=== PATIENT | male | born 1955 | race Caucasian/White ===

== ENCOUNTER 2018-02-03 22:34 | Emergency (ER) | payer OTHER ==
[2018-02-03 23:04] VITALS: TEMP 98.5; BMI 52.0
--- NOTE | 2018-02-03 23:38 | PDOC ---
Attending Attestation - Resident Resident Name: Petey Alcantara - ED Attending Attestation I have performed the following: I have examined & evaluated the patient, The case was reviewed & discussed with the resident, I agree w/resident's findings & plan, Exceptions are as noted <Pee Floyd - Last Filed: 02/03/18 23:37> - HPI HPI: 02/03/18 23:50 The patient is a 62 year old male, with a significant past medical history of morbid obesity, who presents to the emergency department for evaluation s/p fall. The patient reports he was lying [place] in bed at a motel when he fell asleep and woke up on the ground. The patient states he woke up with mild posterior headache and dizziness so he called 911 to be transported to the ED for evaluation. He denies any recent fevers, chills. He denies any recent nausea, vomit, diarrhea or constipation. He denies any recent chest pain or shortness of breath. Allergies: NKA Documentation prepared by Max Leon, acting as medical services manager for Pee Floyd MD. <Max Leon - Last Filed: 02/03/18 23:53>
[2018-02-04 00:16] LABS: BASO % 0.6 % (0-2.0); EOS % 3.7 % (0-4.5); HEMATOCRIT 44.1 % (35.4-49); LYMPH % 11.9 % (8-40); MCH 30.7 pg (25.7-33.7); MCHC 33.9 g/dl (32.0-35.9); MEAN CELL VOLUME 90.6 fl (80-96); MEAN PLT VOLUME 10.8 fl (7.5-11.1); MONO % 11.3 % (3.8-10.2); NEUT % 72.5 % (42.8-82.8); PLATELET COUNT 116 K/MM3 (134-434); RBC 4.87 M/mm3 (4.00-5.60); RDW 15.2 % (11.9-15.9); WHITE BLOOD COUNT 6.2 K/mm3 (4.0-10.0)
[2018-02-04 00:44] LABS: ALBUMIN 3.1 g/dl (3.4-5.0); ANION GAP 11 (8-16); BILIRUBIN,TOTAL 1.4 mg/dL (0.2-1.0); BLOOD UREA NITROGEN 7 mg/dL (7-18); CALCIUM 7.2 mg/dL (8.5-10.1); CHLORIDE 105 mmol/L (98-107); CO2 26 mmol/L (21-32); CREATININE 0.6 mg/dL (0.7-1.3); GLUCOSE,RANDOM 98 mg/dL (74-106); POTASSIUM 3.5 mmol/L (3.5-5.1); SGOT/AST 35 U/L (15-37); SGPT/ALT 26 U/L (12-78); SODIUM 142 mmol/L (136-145); TOT PROT 5.9 g/dl (6.4-8.2)
[2018-02-04 00:45] LABS: ALK PHOS 89 U/L (45-117)
--- NOTE | 2018-02-04 02:51 | PDOC ---
History of Present Illness - General Chief Complaint: Injury Stated Complaint: FALL Time Seen by Provider: 02/03/18 23:03 History Source: Patient Exam Limitations: No Limitations - History of Present Illness Initial Comments: 02/04/18 02:51 The patient is a 62 year old male, with a significant past medical history of morbid obesity, who presents to the emergency department for evaluation s/p fall. The patient reports he was lying [place] in bed at a motel when he fell asleep and woke up on the ground. The patient states he woke up with mild posterior headache and dizziness so he called 911 to be transported to the ED for evaluation. He denies any recent fevers, chills. He denies any recent nausea, vomit, diarrhea or constipation. He denies any recent chest pain or shortness of breath. Past History - Past Medical History Allergies/Adverse Reactions: Allergies Allergy/AdvReac Type Severity Reaction Status Date / Time No Known Allergies Allergy Verified 02/03/18 23:00 Home Medications: Ambulatory Orders Montelukast Na [Singulair] 1 each PO DAILY 07/04/12 metFORMIN HCL [Glucophage] 500 mg PO BID 07/04/12 Metoprolol Tartrate [Lopressor] mg PO DAILY 02/03/18 Anemia: No Cancer: No Cardiac Disorders: No CVA: No COPD: Yes (SOB, LUNG SURGERY) CHF: No Dementia: No Diabetes: (ON METFORMIN DUE FATTY LIVER) GI Disorders: Yes (REFLUX) Disorders: Yes HTN: No Hypercholesterolemia: No Liver Disease: Yes (H/O FATTY LIVER,CIRRHOSIS) Seizures: No Thyroid Disease: No - Surgical History Abdominal Surgery: Yes (HIATAL HERNIA) Lung Surgery: Yes Orthopedic Surgery: No - Suicide/Smoking/Psychosocial Hx Smoking History: Former smoker Have you smoked in the past 12 months: No Information on smoking cessation initiated: No Hx Alcohol Use: Yes (H/O ALCOHOL ABUSE, 20 YEARS AGO , OCCASIONAL DRINKS A BEER ) Drug/Substance Use Hx: No Substance Use Type: Alcohol Hx Substance Use Treatment: No Review of Systems - Review of Systems Able to Perform ROS?: Yes Is the patient limited Scottish proficient: No Constitutional: No: Symptoms Reported HEENTM: No: Symptoms Reported Respiratory: No: Symptoms reported Cardiac (ROS): No: Symptoms Reported ABD/GI: No: Symptoms Reported : No: Symptoms Reported Musculoskeletal: No: Symptoms Reported All Other Systems: Reviewed and Negative *Physical Exam - Vital Signs Last Vital Signs Temp Pulse Resp BP Pulse Ox 98.5 F 92 H 24 143/94 96 02/03/18 23:00 02/03/18 23:00 02/03/18 23:00 02/03/18 23:00 02/03/18 23:00 - Physical Exam General Appearance: Yes: Nourished, Appropriately Dressed. No: Apparent Distress HEENT: positive: EOMI, CASSIE, Normal ENT Inspection Respiratory/Chest: positive: Lungs Clear, Normal Breath Sounds. negative: Chest Tender, Respiratory Distress Cardiovascular: positive: Regular Rhythm, Regular Rate, S1, S2 Gastrointestinal/Abdominal: positive: Normal Bowel Sounds, Flat, Protuberent. negative: Tender Extremity: positive: Normal Capillary Refill, Normal Range of Motion Integumentary: positive: Normal Color, Dry, Warm, Ecchymosis (over right leg) Neurologic: positive: Fully Oriented, Alert, Normal Mood/Affect, Normal Response ED Treatment Course - LABORATORY CBC & Chemistry Diagram: 02/03/18 23:50 02/03/18 23:50 - ADDITIONAL ORDERS Additional order review: Laboratory Results 02/03/18 23:50 Sodium 142 Potassium 3.5 Chloride 105 Carbon Dioxide 26 Anion Gap 11 BUN 7 Creatinine 0.6 L Creat Clearance w eGFR > 60 Random Glucose 98 Calcium 7.2 L Total Bilirubin 1.4 H AST 35 ALT 26 Alkaline Phosphatase 89 Total Protein 5.9 L Albumin 3.1 L 02/03/18 23:50 RBC 4.87 MCV 90.6 MCHC 33.9 RDW 15.2 MPV 10.8 Neutrophils % 72.5 Lymphocytes % 11.9 Monocytes % 11.3 H Eosinophils % 3.7 Basophils % 0.6 - RADIOLOGY Radiology Studies Ordered: Category Date Time Status HEAD CT WITHOUT CONTRAST [CT] Stat CT Scan 02/04/18 00:01 Taken Medical Decision Making - Medical Decision Making 02/04/18 03:42 CT scan head is normal. Patient is asking for placement in detention. Will find placement for patient in the AM with Chemical Waste Management Technician 02/04/18 07:02 Patient signed out to Dr. Babcock. *DC/Admit/Observation/Transfer Diagnosis at time of Disposition: Closed head injury - Discharge Dispostion Disposition: HOME Admit: No - Referrals Referrals: Jamal Natarajan MD [Primary Care Provider] - - Patient Instructions Printed Discharge Instructions: DI for Closed Head Injury Additional Instructions: Come back to the ER for any new concerning or worsening symptom. - Post Discharge Activity
[2018-02-04] MEDS ORDERED: ACETAMINOPHEN 500 MG TABLET (FP) PO ONE (07:42)
--- NOTE | 2018-02-04 07:43 | PDOC ---
*Physical Exam - Vital Signs Last Vital Signs Temp Pulse Resp BP Pulse Ox 98.5 F 87 24 139/85 95 02/03/18 23:00 02/04/18 07:30 02/03/18 23:00 02/04/18 07:30 02/04/18 07:30 - Physical Exam Comments: 02/04/18 07:42 GENERAL: Awake, alert, and fully oriented, in no acute distress HEAD: No signs of trauma, normocephalic, atraumatic EYES: PERRLA, EOMI, sclera anicteric, conjunctiva clear ENT: Hearing grossly normal, nares patent, oropharynx clear without exudates. Moist mucosa NECK: Absent C spine deformity or ttp. Normal ROM, supple, no lymphadenopathy, JVD, or masses LUNGS: No distress, speaks full sentences, clear to auscultation bilaterally HEART: Regular rate and rhythm, normal S1 and S2, no murmurs, rubs or gallops, peripheral pulses normal and equal bilaterally. EXTREMITIES : Normal inspection, Normal range of motion, no edema. No clubbing or cyanosis. NEUROLOGICAL: Cranial nerves II through XII grossly intact. Normal speech, normal gait, no focal sensorimotor deficits SKIN: Warm, Dry, normal turgor, no rashes or lesions noted ED Treatment Course - LABORATORY CBC & Chemistry Diagram: 02/03/18 23:50 02/03/18 23:50 - ADDITIONAL ORDERS Additional order review: Laboratory Results 02/03/18 23:50 Sodium 142 Potassium 3.5 Chloride 105 Carbon Dioxide 26 Anion Gap 11 BUN 7 Creatinine 0.6 L Creat Clearance w eGFR > 60 Random Glucose 98 Calcium 7.2 L Total Bilirubin 1.4 H AST 35 ALT 26 Alkaline Phosphatase 89 Total Protein 5.9 L Albumin 3.1 L 02/03/18 23:50 RBC 4.87 MCV 90.6 MCHC 33.9 RDW 15.2 MPV 10.8 Neutrophils % 72.5 Lymphocytes % 11.9 Monocytes % 11.3 H Eosinophils % 3.7 Basophils % 0.6 Medical Decision Making - Medical Decision Making 02/04/18 07:[address] Alcantara. 62 yo M with h/o morbid obesity who BIBA for closed head injury s/p mechanical fall. TPt. reports that he was sleeping 1 hour [employer] at hotel and woke up after falling on floor and hitting his head. Now complains of mild posterior headache and dizziness, with no asx. N/V, F/C, neck pain/stiffness, back pain, vision change, or head lac. Denies CP, SOB, abdominal pain, urinary complaints. Denies alcohol intoxication. HDS, and physical exam unremarkable, with absent neuro deficits. Low suspicion of SAH, hematoma, or C-spine injury d/t absent neuro deficits. Pt. low risk c-spine injury per NEXUS criteria. Upon further eval patient endorses homelesness, following eviction from hotel today. Headache improved following Tylenol, and CT report with no acute change, hemorrhage, but with old small vessel infartc vs. [place] space in left temporal artery. He is requesting shelter placement. Awaiting case/hospital social worker arrival to ED to arrange for placement. ED Course: 02/04/18 09:25 Case management Aj Tapia does not believe pt. is candidate for nursing facility placement. Does not require assistance with basic ADL' or other activities of living. Will place PT consult to eval pt. 02/04/18 14:37 Pt. not candidate for nursing facility. Stable for d/c with return precautions. *DC/Admit/Observation/Transfer Diagnosis at time of Disposition: Closed head injury - Discharge Dispostion Disposition: HOME Condition at time of disposition: Good - Referrals Referrals: Jamal Natarajan MD [Primary Care Provider] - - Patient Instructions Printed Discharge Instructions: DI for Closed Head Injury Additional Instructions: Please return to the emergency department with any new or worsening symptoms or concerns. Please follow up with your primary care physician within 72 hours. - Post Discharge Activity - Attestations Physician Attestion: 02/04/18 07:43 I attest to the information provided in this note.
[2018-02-04] MEDS ORDERED: ACETAMINOPHEN 325 MG TABLET (FP) ONE (08:23)
[2018-02-04 13:41] VITALS: BP 142/78; PULSE 90
== END 2018-02-04 13:50 | disposition home or self-care (01) ==
LOC: JER 22:34
DX: S09.8XXA Other specified injuries of head, initial encounter (principal); W01.198A Fall on same level from slipping, tripping and stumbling with subsequent striking against other object, initial encounter; Y93.84 Activity, sleeping; Y92.59 Other trade areas as the place of occurrence of the external cause; Y99.8 Other external cause status; E11.9 Type 2 diabetes mellitus without complications; Z79.84 Long term (current) use of oral hypoglycemic drugs; J44.9 Chronic obstructive pulmonary disease, unspecified; Z59.0 Homelessness
CPT/HCPCS: 36415; 70450-TC; 80053; 85025; 99282-25

== ENCOUNTER 2018-02-18 13:54 | Inpatient (IN) | payer OTHER ==
--- NOTE | 2018-02-18 14:12 | PDOC ---
History of Present Illness - General Stated Complaint: Shortness of Breath History Source: Patient, EMS Exam Limitations: No Limitations - History of Present Illness Initial Comments: This is a 62 YOM with h/o A-fib (on Xarelto), NIDDM (on metformin), HTN, prior cigarette smoking, and current homelessness (staying in shelters and hotels) who p/w worsening SOB for the past 6 months acutely exacerbated this morning. He describes an episode this morning where he was drying to stand up from the toilet and was unable to pull himself up because of the positioning of the commode handlebar. When he finally was able to pull himself up to standing, he became very short of breath and describes gasping for breath. The SOB has persisted to some extent since that time (at about 11 am). He additionally notes that while in the ambulance en route to the ED he had mild substernal chest pain which was non-radiating and which had mostly resolved by the time he arrived to the ED. He additionally notes chronic right leg swelling and redness which is currently no different than his normal baseline. He had an ultrasound of this leg at [facility] within the past few weeks and he reports it was normal. He additionally notes inability to breath while laying down flat. He has not had any recent significant cough, fever, palpitations, nausea, vomiting , diarrhea, constipation, etc. Past History - Past Medical History Allergies/Adverse Reactions: Allergies Allergy/AdvReac Type Severity Reaction Status Date / Time No Known Allergies Allergy Verified 02/18/18 14:13 Home Medications: Ambulatory Orders Montelukast Na [Singulair] 1 each PO DAILY 07/04/12 metFORMIN HCL [Glucophage] 500 mg PO BID 07/04/12 Metoprolol Tartrate [Lopressor] 10 mg PO DAILY 02/03/18 Rivaroxaban [Xarelto -] 20 mg PO DAILY 02/18/18 Anemia: No Cancer: No Cardiac Disorders: No CVA: No COPD: Yes (SOB, LUNG SURGERY) CHF: No Dementia: No Diabetes: (ON METFORMIN DUE FATTY LIVER) GI Disorders: Yes (REFLUX) Disorders: Yes HTN: No Hypercholesterolemia: No Liver Disease: Yes (H/O FATTY LIVER,CIRRHOSIS) Seizures: No Thyroid Disease: No - Surgical History Abdominal Surgery: Yes (HIATAL HERNIA) Lung Surgery: Yes Orthopedic Surgery: No - Suicide/Smoking/Psychosocial Hx Smoking History: Former smoker Have you smoked in the past 12 months: No Hx Alcohol Use: Yes (H/O ALCOHOL ABUSE, 20 YEARS AGO , OCCASIONAL DRINKS A BEER ) Drug/Substance Use Hx: No Substance Use Type: Alcohol Hx Substance Use Treatment: No Review of Systems - Review of Systems Able to Perform ROS?: Yes Constitutional: No: Chills, Fever, Unexplained wgt Loss HEENTM: No: Nose Congestion, Throat Pain Respiratory: Yes: Shortness of Breath. No: Cough Cardiac (ROS): Yes: Chest Pain, Edema. No: Palpitations ABD/GI: No: Constipated, Diarrhea, Nausea, Vomiting : No: Burning, Dysuria Musculoskeletal: No: Back Pain, Neck Pain Integumentary: No: Bruising, Rash Neurological: No: Headache, Numbness, Tingling, Weakness, Dizziness Endocrine: No: Unexplained Weight Gain, Unexplained Weight Loss *Physical Exam - Physical Exam General Appearance: Yes: Nourished, Obese, Other (pleasant adult male, answering questions appropriately, unkempt). No: Apparent Distress HEENT: positive: EOMI, CASSIE, Normal Voice, Hearing Grossly Normal. negative: Scleral Icterus (R), Scleral Icterus (L), Nasal Congestion Neck: positive: Trachea midline, Supple. negative: Tender, Rigid, Stridor Respiratory/Chest: positive: Decreased Breath Sounds. negative: Respiratory Distress, Crackles, Rhonchi, Stridor, Wheezing Cardiovascular: positive: Edema (RLE), Irregularly Irregular. negative: Murmur Gastrointestinal/Abdominal: positive: Normal Bowel Sounds, Soft, Protuberent, Hernia (ventral to the RUQ). negative: Tender, Organomegaly, Pulsatile Mass, Guarding Musculoskeletal: positive: Normal Inspection. negative: Decreased Range of Motion, Vertebral Tenderness Extremity: positive: Normal Capillary Refill, Normal Inspection, Normal Range of Motion, Swelling (RLE 2+ pitting edema with redness, no erythema or excessive warmth to BLE). negative: Tender, Cyanosis, Calf Tenderness Integumentary: positive: Normal Color, Dry, Warm. negative: Erythema, Diaphoresis, Rash, Bruising Neurologic: positive: background check coordinator II-XII NML intact (grossly), Fully Oriented, Alert, Normal Mood/Affect, Normal Response, Motor Strength 5/5. negative: Facial Droop , Numbness, Sensory Deficit, Confused, Disoriented Heart Score/ECG Review - History History: Moderately suspicious - Electrocardiogram EKG: Normal - Age Age: 45-65 - Risk Factors Risk Factors Heart Score: Yes Hx Hypertension, Yes Smoking History, Yes Hx Obesity Based on the list above the patient has:: >/=3 risk factors or Hx atherosclerotic disease - Troponin Troponin: </= normal limit - Score Heart Score - Total: 4 ED Treatment Course - LABORATORY CBC & Chemistry Diagram: 02/18/18 14:20 02/18/18 14:42 Medical Decision Making - Medical Decision Making Patient with h/o A-fib (on Xarelto), NIDDM, HTN, who p/w SOB, orthopnea, chest pain. Initial VS notable for: BP 118/73, satting 96% on RA, RR 22 Exam notable for: diminished breath sounds bilaterally, ventral hernia, obesity , RLE 2+ pitting edema and redness. DDX IBNLT CHF, ACS, PE, COPD, PNA/bronchitis, anemia, pericarditis, PTX, effusion (e.g. malignancy), other infection, etc. Ordered is CBCD CMP Mg Cardiac Panel BNP Coags EKG CXR ASA O2. Patient positioned with head of bed up 90 degrees. EKG notable for: A-fib without RVR, no ischemic changes. CXR notable for: cardiomegaly and congestive changes. Labs notable for: Cr is 0.7, Ca 7.7, T. Bili 1.4, BNP 333. Repeat VS: 96% on RA, BP 147/90. On reassessment: Patient states SOB remains somewhat improved with HOB up at 90 degree positioning. 40 Lasix IV ordered. Patient is homeless, HEART score is 4, he requires observation. Repeat cardiac profile ordered. 02/18/18 18:27 Spoke with Hillary Randall, patient to be admitted to Tele Obs to Dr. Guzman. Decision to Admit order placed. *DC/Admit/Observation/Transfer Diagnosis at time of Disposition: Hypocalcemia, Hyperbilirubinemia CHF exacerbation Qualifiers: Heart failure type: unspecified Qualified Code(s): I50.9 - Heart failure, unspecified Chest pain Qualifiers: Chest pain type: unspecified Qualified Code(s): R07.9 - Chest pain, unspecified - Discharge Dispostion Condition at time of disposition: Guarded Admit: Yes - Referrals Referrals: Jamal Natarajan MD [Primary Care Provider] - - Patient Instructions - Post Discharge Activity
[2018-02-18] MEDS ORDERED: ASPIRIN 325 MG TABLET PO ONE (14:28)
[2018-02-18] MEDS ORDERED: ASPIRIN 325 MG TABLET ONE (14:43)
[2018-02-18 15:01] LABS: BASO % 0.7 % (0-2.0); EOS % 2.5 % (0-4.5); HEMATOCRIT 48.7 % (35.4-49); HEMOGLOBIN 16.3 GM/dL (11.7-16.9); LYMPH % 12.3 % (8-40); MCH 30.3 pg (25.7-33.7); MCHC 33.4 g/dl (32.0-35.9); MEAN CELL VOLUME 90.7 fl (80-96); MEAN PLT VOLUME 10.2 fl (7.5-11.1); MONO % 11.5 % (3.8-10.2); PLATELET COUNT 151 K/MM3 (134-434); RBC 5.37 M/mm3 (4.00-5.60); RDW 15.5 % (11.9-15.9); WHITE BLOOD COUNT 8.1 K/mm3 (4.0-10.0)
[2018-02-18 15:14] LABS: INR 1.06 (0.82-1.09)
[2018-02-18 15:23] LABS: ALBUMIN 3.4 g/dl (3.4-5.0); ANION GAP 9 (8-16); BILIRUBIN,TOTAL 1.4 mg/dL (0.2-1.0); BLOOD UREA NITROGEN 7 mg/dL (7-18); CALCIUM 7.7 mg/dL (8.5-10.1); CHLORIDE 103 mmol/L (98-107); CO2 29 mmol/L (21-32); CREATININE 0.7 mg/dL (0.7-1.3); GLUCOSE,RANDOM 99 mg/dL (74-106); LIPASE 124 U/L (73-393); MAGNESIUM 2.2 mg/dL (1.8-2.4); POTASSIUM 4.2 mmol/L (3.5-5.1); SGOT/AST 31 U/L (15-37); SGPT/ALT 28 U/L (12-78); SODIUM 141 mmol/L (136-145); TOT PROT 6.5 g/dl (6.4-8.2)
[2018-02-18 15:26] LABS: ALK PHOS 105 U/L (45-117)
--- NOTE | 2018-02-18 15:26 | PDOC ---
Attending Attestation - Resident Resident Name: Barbara Manuel - ED Attending Attestation I have performed the following: I have examined & evaluated the patient, The case was reviewed & discussed with the resident, I agree w/resident's findings & plan, Exceptions are as noted - HPI HPI: 02/18/18 15:22 "The patient is a undomiciled 62 year old male, with a significant past medical history of morbid obesity, diabetes mellitus, COPD, atrial fibrillation (on Xarelto), who presents to the emergency department complaining of shortness of breath. The patient states that this morning around 11 am he was having trouble standing up from the toilet due to the positioning of the handlebar and once he was able to stand up felt very short of breath. The patient states the shortness of breath has persisted since the episode earlier this morning but has gradually been improving. The patient notes he has been having progressively worsening shortness of breath for the past 6 months and states he has difficulty breathing while lying down. The patient also states on the way to the ED in the ambulance he had a brief episode of midsternal chest pain which has since resolved. The patient also reports he has chronic right leg redness and swelling which was evaluated at [facility] 2-3 weeks ago with an ultrasound performed which was reportedly normal. He denies any recent fevers, chills, cough, headache or dizziness. He denies any recent nausea, vomit, diarrhea or constipation. He denies any recent dysuria , frequency, urgency or hematuria. Allergies: NKA Social History: Undomiciled. Occasional EtOH use. Nonsmoker. Denies recreational drug use. Primary Care Physician: Dr. Natarajan " - Physicial Exam PE: 02/18/18 15:23 "GENERAL: Awake, alert, and fully oriented, in no acute distress HEAD: No signs of trauma EYES: PERRLA, EOMI, sclera anicteric, conjunctiva clear ENT: Auricles normal inspection, hearing grossly normal, nares patent, oropharynx clear without exudates. Moist mucosa NECK: Nontender, no stepoffs, Normal ROM, supple, no lymphadenopathy, JVD, or masses LUNGS: Breath sounds equal, clear to auscultation bilaterally. No wheezes, and no crackles HEART: Regular rate and rhythm, normal S1 and S2, no murmurs, rubs or gallops ABDOMEN: Soft, nontender, normoactive bowel sounds. No guarding, no rebound. No masses EXTREMITIES: + RLE edema and erythema NEUROLOGICAL: Cranial nerves II through XII intact. 5/5 strength and sensation in all extremities, Normal speech, normal gait, normal cerebellar function SKIN: Warm, Dry, normal turgor, no rashes or lesions noted. " - Medical Decision Making 02/18/18 15:23 62 M with SOB, progressively worsening over several weeks. Pt with difficult lung exam 2/2 body habitus. Exam notable for RLE swelling and redness - appears chronic in nature. Possible new onset CHF. Also consider DVT/PE, though reportedly normal doppler recently. Pt is on xarelto, making DVT/PE less likely , but will repeat RLE doppler today. Also consider ACS as pt has several risk factors. - Labs, trop, BNP - RLE doppler - CXR - Admit
[2018-02-18] MEDS ORDERED: FUROSEMIDE 40 MG/4 ML INJECTABLE VIAL IVPUSH ONE (17:54)
[2018-02-18] MEDS ORDERED: FUROSEMIDE 40 MG/4 ML INJECTABLE VIAL ONE (18:00)
--- NOTE | 2018-02-18 18:44 | HP ---
CHIEF COMPLAINT: "I have been in every emergency room in [place] in the past month. I'm homeless and I want to go to a senior care." PCP: Dr. Natarajan HISTORY OF PRESENT ILLNESS: 62 year-old male with a PMH significant for HTN, atrial fibrillation on Xarelto (diagnosed 12/2017), NIDDM, and morbid obesity. Patient reports he has been increasingly SOB for the past six months. Had one episode of acute SOB this morning when trying to stand up from the toilet. He also reported to EMS that he had mild substernal chest pain which resolved by the time he got to the ED. At baseline he becomes SOB with walking more than ten feet. He has been treated for his chronic SOB in at least 6 emergency departments over the past month by the patient's own account. He has been told he is SOB due to his obesity and deconditioning. Patient also complains of chronic RLE pain. ER course was notable for: (1) Vital signs stable: T98.7, BP 188/73, p84, 96% on 2L (2) First troponin neg, two pending (3) CXR: cardiomegaly with congestive changes (4) Lasix IV 40mg x 1 (5) US RLE negative for DVT (6) ECG: afib @100bpm Recent Travel: No PAST MEDICAL HISTORY: Hypertension Atrial fibrillation NIDDM Morbid obesity PAST SURGICAL HISTORY: Left lung resection, negative pathology Social History: Smoking: quit age 24 Alcohol: no Drugs: no Family History: Allergies No Known Allergies Allergy (Verified 02/18/18 14:13) HOME MEDICATIONS: Home Medications Medication Instructions Recorded Montelukast Na [Singulair] 1 each PO DAILY 07/04/12 metFORMIN HCL [Glucophage] 500 mg PO BID 07/04/12 Metoprolol Tartrate [Lopressor] 10 mg PO DAILY 02/03/18 Rivaroxaban [Xarelto -] 20 mg PO DAILY 02/18/18 REVIEW OF SYSTEMS CONSTITUTIONAL: Absent: fever, chills, diaphoresis, generalized weakness, malaise, loss of appetite, weight change HEENT: Absent: rhinorrhea, nasal congestion, throat pain, throat swelling, difficulty swallowing, mouth swelling, ear pain, eye pain, visual changes CARDIOVASCULAR: +brief, mild chest pain Absent: chest pain, syncope, palpitations, irregular heart rate, lightheadedness , peripheral edema RESPIRATORY: +SOB, VERAS Absent: cough, orthopnea, wheezing, stridor, hemoptysis GASTROINTESTINAL: Absent: abdominal pain, abdominal distension, nausea, vomiting, diarrhea, constipation, melena, hematochezia GENITOURINARY: Absent: dysuria, frequency, urgency, hesitancy, hematuria, flank pain, genital pain MUSCULOSKELETAL: Absent: myalgia, arthralgia, joint swelling, back pain, neck pain SKIN: Absent: rash, itching, pallor HEMATOLOGIC/IMMUNOLOGIC: Absent: easy bleeding, easy bruising, lymphadenopathy, frequent infections ENDOCRINE: Absent: unexplained weight gain, unexplained weight loss, heat intolerance, cold intolerance NEUROLOGIC: Absent: headache, focal weakness or paresthesias, dizziness, unsteady gait, seizure, mental status changes, bladder or bowel incontinence PSYCHIATRIC: Absent: anxiety, depression, suicidal or homicidal ideation, hallucinations. PHYSICAL EXAMINATION Vital Signs - 24 hr 02/18/18 02/18/18 14:04 17:56 Temperature 97.8 F Pulse Rate 84 Pulse Rate [ 90 Right Radial] Respiratory 22 20 Rate Blood Pressure 118/73 Blood Pressure 147/90 [Left Arm] O2 Sat by Pulse 96 96 Oximetry (%) GENERAL: Awake, alert, and fully oriented, in no acute distress. HEAD: Normal with no signs of trauma. EYES: Pupils equal, round and reactive to light, extraocular movements intact, sclera anicteric, conjunctiva clear. No lid lag. EARS, NOSE, THROAT: Ears normal, nares patent, oropharynx clear without exudates. Moist mucous membranes. NECK: Normal range of motion, supple without lymphadenopathy, JVD, or masses. LUNGS: Breath sounds equal, clear to auscultation bilaterally. No wheezes, and no crackles. No accessory muscle use. HEART: Regular rate and rhythm, normal S1 and S2 without murmur, rub or gallop. ABDOMEN: Morbidly obese, nontender, ventral hernia, well-healed surgical scar UPPER EXTREMITIES: 2+ pulses, warm, well-perfused. No cyanosis. No clubbing. No peripheral edema. LOWER EXTREMITIES: 3+ edema from feet to knees, erythema R>L NEUROLOGICAL: Cranial nerves II-XII intact. Normal speech. Gait not observed Laboratory Results - last 24 hr 02/18/18 02/18/18 02/18/18 14:20 14:42 14:42 WBC 8.1 D RBC 5.37 Hgb 16.3 Hct 48.7 MCV 90.7 MCH 30.3 MCHC 33.4 RDW 15.5 Plt Count 151 D MPV 10.2 Neutrophils % 73.0 Lymphocytes % 12.3 Monocytes % 11.5 H Eosinophils % 2.5 Basophils % 0.7 PT with INR 12.00 H INR 1.06 PTT (Actin FS) Sodium 141 Potassium 4.2 Chloride 103 Carbon Dioxide 29 Anion Gap 9 BUN 7 Creatinine 0.7 Creat Clearance w eGFR > 60 Random Glucose 99 Calcium 7.7 L Magnesium 2.2 Total Bilirubin 1.4 H AST 31 ALT 28 Alkaline Phosphatase 105 Creatine Kinase 57 Troponin I < 0.02 B-Natriuretic Peptide 333.10 H Total Protein 6.5 Albumin 3.4 Lipase 124 02/18/18 14:42 WBC RBC Hgb Hct MCV MCH MCHC RDW Plt Count MPV Neutrophils % Lymphocytes % Monocytes % Eosinophils % Basophils % PT with INR INR PTT (Actin FS) 41.0 H Sodium Potassium Chloride Carbon Dioxide Anion Gap BUN Creatinine Creat Clearance w eGFR Random Glucose Calcium Magnesium Total Bilirubin AST ALT Alkaline Phosphatase Creatine Kinase Troponin I B-Natriuretic Peptide Total Protein Albumin Lipase ASSESSMENT/PLAN: 62 year-old male with a PMH significant for HTN, atrial fibrillation on Xarelto (diagnosed 12/2017), NIDDM, and morbid obesity. Chest pain --troponin neg x 2, third pending --CXR: cardiomegaly with congestive changes --ECG afib @ 100bpm --echo on Wednesday --cardiology consult Afib with RVR --rate to low 100s on telemetry, PVCs, brief runs of 3-4 beats v-tach --metoprolol 50mg x 1; then resume daily home dose 50mg daily --on Xarelto NIDDM Hypertension --BP stable --continue metoprolol Pulmonary congestive changes --Lasix IV 40mg x 1 Chronic RLE pain --US RLE negative for DVT Morbid obesity --BMI 52 Visit type - Emergency Visit Emergency Visit: Yes ED Registration Date: 02/18/18 Care time: The patient presented to the Emergency Department on the above date and was hospitalized for further evaluation of their emergent condition. - New Patient This patient is new to me today: Yes Date on this admission: 02/19/18 - Critical Care Critical Care patient: No Hospitalist Screening - Colonoscopy Questionnaire Colonoscopy Questionnaire: Colonoscopy Questionnaire - Patient: 50 - 75 years old and never had a screening colonoscopy: Unknown History of colon or rectal polyps, or CA: Unknown History of IBD, Crohn's disease or UC: Unknown History of abdominal radiation therapy as a child: Unknown - Relative: 1 with colon or rectal CA, or polyps at age 60 or younger: Unknown Colon or rectal CA diagnosed at age 45 or younger: Unknown Multiple relatives with colon or rectal CA: Unknown - Outcome: Screening Result: Negative Screen
[2018-02-18 20:30] VITALS: BMI 52.1
[2018-02-18] MEDS ORDERED: INSULIN (NOVOLOG) ASPART 100 UNITS/ML 10ML VIAL SQ SCH (22:00)
[2018-02-18] MEDS ORDERED: METOPROLOL TARTRATE 50 MG TABLET (FP) PO ONE (22:13)
[2018-02-18] MEDS: metFORMIN HCL 500 MG TABLET (FP) PO SCH (22:32)
[2018-02-18] MEDS: INSULIN SLIDING SCALE (NOVOLOG) 1 VIAL SQ SCH (22:40)
[2018-02-18] MEDS ORDERED: MONTELUKAST NA 10 MG TABLET PO ONE (22:42)
[2018-02-18] MEDS: CLOTRIMAZOLE 1% CREAM 15 GM TUBE TP SCH (23:10)
[2018-02-18] MEDS ORDERED: METOPROLOL TARTRATE 50 MG TABLET (FP) PO STA (23:31)
[2018-02-19] MEDS: metFORMIN HCL 500 MG TABLET (FP) PO SCH (06:03)
[2018-02-19] MEDS: INSULIN SLIDING SCALE (NOVOLOG) 1 VIAL SQ SCH ×4 (06:03→22:38)
[2018-02-19 07:18] LABS: BASO % 1.1 % (0-2.0); EOS % 3.4 % (0-4.5); HEMATOCRIT 48.2 % (35.4-49); HEMOGLOBIN 15.9 GM/dL (11.7-16.9); LYMPH % 17.9 % (8-40); MCH 30.1 pg (25.7-33.7); MEAN CELL VOLUME 91.2 fl (80-96); MEAN PLT VOLUME 10.8 fl (7.5-11.1); MONO % 12.6 % (3.8-10.2); PLATELET COUNT 143 K/MM3 (134-434); RBC 5.28 M/mm3 (4.00-5.60); RDW 15.4 % (11.9-15.9); WHITE BLOOD COUNT 6.9 K/mm3 (4.0-10.0)
[2018-02-19 07:49] LABS: CHLORIDE 102 mmol/L (98-107); POTASSIUM 4.2 mmol/L (3.5-5.1); SODIUM 142 mmol/L (136-145)
[2018-02-19 07:58] LABS: ALBUMIN 3.3 g/dl (3.4-5.0); ALK PHOS 103 U/L (45-117); ANION GAP 11 (8-16); BILIRUBIN,TOTAL 1.5 mg/dL (0.2-1.0); BLOOD UREA NITROGEN 11 mg/dL (7-18); CALCIUM 8.2 mg/dL (8.5-10.1); CO2 29 mmol/L (21-32); CREATININE 0.7 mg/dL (0.7-1.3); GLUCOSE,RANDOM 95 mg/dL (74-106); MAGNESIUM 2.3 mg/dL (1.8-2.4); SGOT/AST 29 U/L (15-37); SGPT/ALT 26 U/L (12-78); TOT PROT 6.1 g/dl (6.4-8.2)
[2018-02-19] MEDS ORDERED: PT OWN MED DRAWER 7, Y5N ONE ×2 (09:14→23:01)
[2018-02-19] MEDS: CLOTRIMAZOLE 1% CREAM 15 GM TUBE TP SCH ×2 (09:32→23:59)
[2018-02-19] MEDS ORDERED: FUROSEMIDE 40 MG TABLET (FP) PO SCH (10:00)
[2018-02-19] MEDS ORDERED: METOPROLOL TARTRATE 50 MG TABLET (FP) PO SCH (10:00)
[2018-02-19] MEDS: RIVAROXABAN 20 MG TABLET PO SCH (11:06)
--- NOTE | 2018-02-19 15:43 | CON.CARD ---
Consult Consult Specialty:: Cardiology Reason for Consultation:: AFIB. Dyspnea - History of Present Illness Chief Complaint: SOB History of Present Illness: This is a 62 year old male with a PMH of AFIB, on Xarelto, DM2, obesity, HTN, and a smoking history. He is currently homeless, living in shelters. He has been experiencing VERAS accompanied occasionally with chest discomfort. He also noted orthopnea. He also noted notes chronic right leg swelling and redness which is currently no different than his normal baseline He had an ultrasound of this leg at [facility] within the past few weeks and he reports it was normal. CXR with CHF and cardiomegally. - Alcohol/Substance Use Hx Alcohol Use: Yes (H/O ALCOHOL ABUSE, 20 YEARS AGO , OCCASIONAL DRINKS A BEER ) - Smoking History Smoking history: Former smoker Have you smoked in the past 12 months: No Home Medications - Allergies Allergies/Adverse Reactions: Allergies Allergy/AdvReac Type Severity Reaction Status Date / Time No Known Allergies Allergy Verified 02/18/18 14:13 - Home Medications Home Medications: Ambulatory Orders Montelukast Na [Singulair] 1 each PO DAILY 07/04/12 metFORMIN HCL [Glucophage] 500 mg PO BID 07/04/12 Metoprolol Tartrate [Lopressor] 10 mg PO DAILY 02/03/18 Rivaroxaban [Xarelto -] 20 mg PO DAILY 02/18/18 Review of Systems Findings/Remarks: As per HPI Vital Signs: Vital Signs Temperature 98.4 F 02/19/18 09:00 Pulse Rate 90 02/19/18 09:00 Respiratory Rate 20 02/19/18 09:00 Blood Pressure 135/72 02/19/18 09:00 O2 Sat by Pulse Oximetry (%) 94 L 02/19/18 11:00 Constitutional: Yes: Obese HENT: Yes: WNL Neck: Yes: WNL Respiratory: Yes: Other (Minimal basialr crackles) Gastrointestinal: Yes: Soft Cardiovascular: Yes: Pulse Irregular (NL S1S2, no MRHG) JVD: No Edema: LLE: 1+, RLE: 1+ Neurological: Yes: Alert, Oriented (Grossly non focal) - Other Data Labs, Other Data: CBC, BMP 02/19/18 06:00 02/19/18 06:00 INR, PTT INR 1.06 (0.82-1.09) 02/18/18 14:42 Troponin, BNP 02/18/18 02/18/18 02/19/18 14:30 19:45 01:15 Troponin I < 0.02 < 0.02 < 0.02 Troponin, BNP 02/18/18 02/18/18 02/19/18 14:30 19:45 01:15 Troponin I < 0.02 < 0.02 < 0.02 Assessment/Plan CHF Obtain an Echocardiogram to determine systolic vs diastolic Obtain a BNP level Would diuress with Lasix 40 mg IVSS daily Follow daily I's/O's/wt's/lytes AFIB Continue rate control with metoprolol. If metoprolol tartrate is used, it show be given BID for 24 hour coverage Continue Xarelto for AC
[2018-02-19] MEDS ORDERED: FUROSEMIDE 40 MG/4 ML INJECTABLE VIAL IVPUSH SCH (17:00)
--- NOTE | 2018-02-19 19:01 | PN ---
Physical Exam: SUBJECTIVE: Patient seen and examined at bedside. Patient becomes SOB with changing position in bed, sitting on edge of bed. OBJECTIVE: Vital Signs Period Temp Pulse Resp BP Sys/Whitley Pulse Ox Last 24 Hr 98.1 F-99.0 F 80-90 19-20 113-135/55-80 94-98 GENERAL: Awake, alert, and fully oriented, in no acute distress. LUNGS: Breath sounds equal, clear to auscultation bilaterally. No wheezes, and no crackles. No accessory muscle use. HEART: Regular rate and rhythm, normal S1 and S2 without murmur, rub or gallop. ABDOMEN: Morbidly obese, nontender, ventral hernia, well-healed surgical scar UPPER EXTREMITIES: 2+ pulses, warm, well-perfused. No cyanosis. No clubbing. No peripheral edema. LOWER EXTREMITIES: 3+ edema from feet to knees, erythema R>L NEUROLOGICAL: Cranial nerves II-XII intact. Normal speech. Gait not observed Laboratory Results - last 24 hr 02/18/18 02/18/18 02/18/18 14:30 19:45 22:04 WBC RBC Hgb Hct MCV MCH MCHC RDW Plt Count MPV Neutrophils % Lymphocytes % Monocytes % Eosinophils % Basophils % Sodium Potassium Chloride Carbon Dioxide Anion Gap BUN Creatinine Creat Clearance w eGFR POC Glucometer 193 Random Glucose Calcium Magnesium Total Bilirubin AST ALT Alkaline Phosphatase Creatine Kinase 59 Troponin I < 0.02 < 0.02 Total Protein Albumin 02/19/18 02/19/18 02/19/18 01:15 05:37 06:00 WBC 6.9 RBC 5.28 Hgb 15.9 Hct 48.2 MCV 91.2 MCH 30.1 MCHC 33.0 RDW 15.4 Plt Count 143 MPV 10.8 Neutrophils % 65.0 Lymphocytes % 17.9 D Monocytes % 12.6 H Eosinophils % 3.4 Basophils % 1.1 Sodium Potassium Chloride Carbon Dioxide Anion Gap BUN Creatinine Creat Clearance w eGFR POC Glucometer 77 Random Glucose Calcium Magnesium Total Bilirubin AST ALT Alkaline Phosphatase Creatine Kinase Troponin I < 0.02 Total Protein Albumin 02/19/18 02/19/18 02/19/18 06:00 11:05 16:19 WBC RBC Hgb Hct MCV MCH MCHC RDW Plt Count MPV Neutrophils % Lymphocytes % Monocytes % Eosinophils % Basophils % Sodium 142 Potassium 4.2 Chloride 102 Carbon Dioxide 29 Anion Gap 11 BUN 11 D Creatinine 0.7 Creat Clearance w eGFR > 60 POC Glucometer 136 144 Random Glucose 95 Calcium 8.2 L Magnesium 2.3 Total Bilirubin 1.5 H AST 29 ALT 26 Alkaline Phosphatase 103 Creatine Kinase Troponin I Total Protein 6.1 L Albumin 3.3 L Active Medications Generic Name Dose Route Start Last Admin Trade Name Freq PRN Reason Stop Dose Admin Clotrimazole 1 applic 02/18/18 22:45 02/19/18 09:32 Lotrimin 1% Cream - TP 1 applic BID AMISH Administration Furosemide 40 mg 02/19/18 17:00 02/19/18 17:46 Lasix Injection - IVPUSH 40 mg DAILY AMISH Administration Insulin Aspart 1 vial 02/18/18 22:00 02/19/18 16:21 Novolog Vial Sliding Scale - SQ Not Given ACHS [facility] Protocol Metoprolol Tartrate 50 mg 02/19/18 22:00 Lopressor - PO BID AMISH Montelukast Sodium 10 mg 02/19/18 22:00 Singulair - PO HS AMISH Rivaroxaban 20 mg 02/19/18 10:00 02/19/18 11:06 Xarelto - PO 20 mg DAILY AMISH Administration ASSESSMENT/PLAN 62 year-old male with a PMH significant for HTN, atrial fibrillation on Xarelto (diagnosed 12/2017), NIDDM, and morbid obesity. Chest pain --troponin neg x 3 --ECG afib @ 100bpm Heart failure, NOS --CXR: cardiomegaly with congestive changes --BNP 333 --echo on Wednesday --cardiology following Afib with RVR --rate to low 100s on telemetry, PVCs, brief runs of 3-4 beats v-tach --metoprolol 50mg BID --on Xarelto NIDDM --Novolog sliding scale coverage --A1C pending Hypertension --BP stable --continue metoprolol Chronic RLE pain --US RLE negative for DVT Morbid obesity --BMI 52 FEN Fluids: PO intake adequate Electrolytes: replete as indicated Nutrition: low sodium, diabetic DVT prophylaxis: enoxaparin 50mg (obesity dosing) Physical therapy Dispo: patient requiring IV Lasix for heart failure, still symptomatic; admit to inpatient. Full code. Visit type - Emergency Visit Emergency Visit: Yes ED Registration Date: 02/18/18 Care time: The patient presented to the Emergency Department on the above date and was hospitalized for further evaluation of their emergent condition. - New Patient This patient is new to me today: No - Critical Care Critical Care patient: No
[2018-02-19] MEDS: METOPROLOL TARTRATE 50 MG TABLET (FP) PO SCH (22:38)
[2018-02-19] MEDS: MONTELUKAST NA 10 MG TABLET PO SCH (22:38)
[2018-02-19] MEDS: METHYL SALICYLATE/MENTHOL OINT 30 GM TUBE TP PRN (23:59)
[2018-02-20] MEDS ORDERED: ACETAMINOPHEN 325 MG TABLET (FP) PO PRN (01:14)
[2018-02-20] MEDS: INSULIN SLIDING SCALE (NOVOLOG) 1 VIAL SQ SCH ×4 (06:00→21:03)
[2018-02-20 07:23] LABS: BASO % 1.3 % (0-2.0); EOS % 3.5 % (0-4.5); HEMATOCRIT 48.9 % (35.4-49); HEMOGLOBIN 16.2 GM/dL (11.7-16.9); LYMPH % 15.6 % (8-40); MCH 30.1 pg (25.7-33.7); MEAN CELL VOLUME 91.3 fl (80-96); MEAN PLT VOLUME 10.1 fl (7.5-11.1); MONO % 12.9 % (3.8-10.2); NEUT % 66.7 % (42.8-82.8); PLATELET COUNT 123 K/MM3 (134-434); RBC 5.36 M/mm3 (4.00-5.60); RDW 15.6 % (11.9-15.9); WHITE BLOOD COUNT 6.3 K/mm3 (4.0-10.0)
--- NOTE | 2018-02-20 09:15 | PN ---
Physical Exam: SUBJECTIVE: Patient seen and examined at bedside. Patient's abdomen is so large he has to lie on his side and rest his belly on the mattress. Becomes SOB with position change, walking to bathroom. OBJECTIVE: Vital Signs Period Temp Pulse Resp BP Sys/Whitley Pulse Ox Last 24 Hr 98.1 F-99.2 F 75-86 20-22 101-122/55-79 94-94 GENERAL: Awake, alert, and fully oriented, dyspneic with movement. LUNGS: CTA; Pre-post testing: walked hallway with frequent stops for SOB; O2 sat steady at 95% on room air but tachypnic to 50 HEART: Regular rate and rhythm, normal S1 and S2 without murmur, rub or gallop. ABDOMEN: Hugely distended abdomen, nontender, ventral hernia, well-healed surgical scar UPPER EXTREMITIES: 2+ pulses, warm, well-perfused. No cyanosis. No clubbing. No peripheral edema. LOWER EXTREMITIES: 3+ edema from feet to knees, erythema R>L NEUROLOGICAL: Cranial nerves II-XII intact. Normal speech. Laboratory Results - last 24 hr 02/19/18 02/19/18 02/19/18 11:05 16:19 22:37 WBC RBC Hgb Hct MCV MCH MCHC RDW Plt Count MPV Neutrophils % Lymphocytes % Monocytes % Eosinophils % Basophils % POC Glucometer 136 144 148 02/20/18 02/20/18 05:13 06:00 WBC 6.3 RBC 5.36 Hgb 16.2 Hct 48.9 MCV 91.3 MCH 30.1 MCHC 33.0 RDW 15.6 Plt Count 123 L MPV 10.1 Neutrophils % 66.7 Lymphocytes % 15.6 Monocytes % 12.9 H Eosinophils % 3.5 Basophils % 1.3 POC Glucometer 105 Active Medications Generic Name Dose Route Start Last Admin Trade Name Freq PRN Reason Stop Dose Admin Clotrimazole 1 applic 02/18/18 22:45 02/19/18 23:59 Lotrimin 1% Cream - TP 1 applic BID AMISH Administration Furosemide 40 mg 02/19/18 17:00 02/19/18 17:46 Lasix Injection - IVPUSH 40 mg DAILY AMISH Administration Insulin Aspart 1 vial 02/18/18 22:00 02/20/18 06:00 Novolog Vial Sliding Scale - SQ Not Given ACHS [facility] Protocol Methyl Salicylate 1 applic 02/19/18 23:49 02/19/18 23:59 Alex-Dodge - TP 1 applic DAILY PRN Administration PAIN LEVEL 1-5 Metoprolol Tartrate 50 mg 02/19/18 22:00 02/19/18 22:38 Lopressor - PO 50 mg BID AMISH Administration Montelukast Sodium 10 mg 02/19/18 22:00 02/19/18 22:38 Singulair - PO 10 mg HS AMISH Administration Rivaroxaban 20 mg 02/19/18 10:00 02/19/18 11:06 Xarelto - PO 20 mg DAILY AIMSH Administration ASSESSMENT/PLAN: 62 year-old male with a PMH significant for HTN, atrial fibrillation on Xarelto (diagnosed 12/2017), NIDDM, and morbid obesity. Shortness of breath Dyspnea on exertion Tachypnea --likely multifactorial: heart failure v. COPD v. ventral hernia v. obesity/ deconditioning Heart failure, NOS --CXR: cardiomegaly with congestive changes --BNP 333 --echo on Wednesday --continue Lasix IV BID --strict I&Os, daily weights (down 2.1kg since 02/18) --cardiology following Chest pain --troponin neg x 3 --ECG no indication of ischemic event --continue metoprolol BID --ASA --cardiology following Afib with RVR --rate well-controlled on increased metoprolol 50mg BID --on Xarelto Ventral hernia --h/o ventral hernia repair years ago --seen and evaluated at [facility] about a year ago, patient was told he was a surgical candidate, surgery not done --consult for Dr. Cervantes placed NIDDM --Novolog sliding scale coverage --A1C 6.1 --hold metformin Hypertension --BP stable --continue metoprolol Chronic RLE pain --US RLE negative for DVT Morbid obesity --BMI 52 FEN Fluids: PO intake adequate Electrolytes: replete as indicated Nutrition: low sodium, diabetic; nutrition consult requested DVT prophylaxis: enoxaparin 50mg (obesity dosing) Physical therapy Dispo: Visit type - Emergency Visit Emergency Visit: Yes ED Registration Date: 02/19/18 Care time: The patient presented to the Emergency Department on the above date and was hospitalized for further evaluation of their emergent condition. - New Patient This patient is new to me today: No - Critical Care Critical Care patient: No
[2018-02-20] MEDS ORDERED: PT OWN MED DRAWER 7, Y5N ONE (10:18)
[2018-02-20] MEDS: CLOTRIMAZOLE 1% CREAM 15 GM TUBE TP SCH ×2 (10:30→23:54)
[2018-02-20] MEDS: METOPROLOL TARTRATE 50 MG TABLET (FP) PO SCH ×2 (10:40→21:04)
[2018-02-20] MEDS: RIVAROXABAN 20 MG TABLET PO SCH (10:40)
[2018-02-20 11:11] LABS: CHLORIDE 101 mmol/L (98-107); POTASSIUM 3.7 mmol/L (3.5-5.1); SODIUM 139 mmol/L (136-145)
[2018-02-20 11:42] LABS: ALBUMIN 3.2 g/dl (3.4-5.0); ALK PHOS 97 U/L (45-117); ANION GAP 8 (8-16); BILIRUBIN,TOTAL 1.6 mg/dL (0.2-1.0); BLOOD UREA NITROGEN 13 mg/dL (7-18); CALCIUM 8.1 mg/dL (8.5-10.1); CO2 30 mmol/L (21-32); CREATININE 0.7 mg/dL (0.7-1.3); GLUCOSE,RANDOM 97 mg/dL (74-106); MAGNESIUM 1.9 mg/dL (1.8-2.4); SGOT/AST 28 U/L (15-37); SGPT/ALT 20 U/L (12-78); TOT PROT 5.8 g/dl (6.4-8.2)
--- NOTE | 2018-02-20 12:40 | CON.PULM ---
Consult Consult Specialty:: PULMONARY Referred by:: HILL Reason for Consultation:: SOB - History of Present Illness Chief Complaint: SOB History of Present Illness: This is a 62 YOM with h/o A-fib (on Xarelto), NIDDM (on metformin), HTN, prior cigarette smoking, and current homelessness (staying in shelters and hotels) who p/w worsening SOB for the past 6 months acutely exacerbated this morning. He describes an episode this morning where he was drying to stand up from the toilet and was unable to pull himself up because of the positioning of the commode handlebar. When he finally was able to pull himself up to standing, he became very short of breath and describes gasping for breath. The SOB has persisted to some extent since that time (at about 11 am). He additionally notes that while in the ambulance en route to the ED he had mild substernal chest pain which was non-radiating and which had mostly resolved by the time he arrived to the ED. He additionally notes chronic right leg swelling and redness which is currently no different than his normal baseline. He had an ultrasound of this leg at [facility] within the past few weeks and he reports it was normal. He additionally notes inability to breath while laying down flat. He has not had any recent significant cough, fever, palpitations, nausea, vomiting. 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 No: O2 Dependent Gastrointestinal: No: Ascites Hepatobiliary: No: Cirrhosis Renal/: No: Renal Failure Heme/Onc: No: Anemia - Alcohol/Substance Use Hx Alcohol Use: Yes (H/O ALCOHOL ABUSE, 20 YEARS AGO , OCCASIONAL DRINKS A BEER ) - Smoking History Smoking history: Former smoker Have you smoked in the past 12 months: No - Social History ADL: Support Services Place of : [facility] History of Recent Travel: No Home Medications - Allergies Allergies/Adverse Reactions: Allergies Allergy/AdvReac Type Severity Reaction Status Date / Time No Known Allergies Allergy Verified 02/18/18 14:13 - Home Medications Home Medications: Ambulatory Orders Montelukast Na [Singulair] 1 each PO DAILY 07/04/12 metFORMIN HCL [Glucophage] 500 mg PO BID 07/04/12 Metoprolol Tartrate [Lopressor] 10 mg PO DAILY 02/03/18 Rivaroxaban [Xarelto -] 20 mg PO DAILY 02/18/18 Family Disease History - Family Disease History Family History: Unremarkable Review of Systems - Review of Systems Constitutional: denies: Fever Eyes: denies: Blurred Vision HENT: denies: Difficult Swallowing Neck: denies: Decreased ROM Cardiovascular: reports: Shortness of Breath. denies: Chest Pain Respiratory: reports: Cough, Exercise Intolerance, SOB, SOB on Exertion, Wheezing. denies: Hemoptysis Gastrointestinal: denies: Abdominal Pain Genitourinary: reports: No Symptoms Breasts: reports: No Symptoms Reported Musculoskeletal: reports: No Symptoms Integumentary: reports: No Symptoms Physical Exam Vital Sings: Vital Signs Temperature 98.6 F 02/20/18 06:00 Pulse Rate 82 02/20/18 06:00 Respiratory Rate 22 02/20/18 06:00 Blood Pressure 111/58 02/20/18 06:00 O2 Sat by Pulse Oximetry (%) 94 L 02/19/18 21:00 Constitutional: Yes: Calm Eyes: Yes: EOM Intact HENT: Yes: Normocephalic Neck: Yes: Trachea Midline Cardiovascular: Yes: Regular Rate and Rhythm, S1, S2 Respiratory: Yes: CTA Bilaterally Gastrointestinal: Yes: Abdomen, Obese Edema: LLE: 2+, RLE: 2+ Integumentary: Yes: WNL Neurological: Yes: Alert Labs: CBC, BMP 02/20/18 06:00 02/20/18 06:00 REST REVIEWED Imaging - Results Chest X-ray: Report Reviewed, Image Reviewed Problem List - Problems (1) Homeless single person Code(s): Z59.0 - HOMELESSNESS (2) CHF exacerbation Code(s): I50.9 - HEART FAILURE, UNSPECIFIED Qualifiers: Heart failure type: unspecified Qualified Code(s): I50.9 - Heart failure, unspecified (3) Chest pain Code(s): R07.9 - CHEST PAIN, UNSPECIFIED Qualifiers: Chest pain type: unspecified Qualified Code(s): R07.9 - Chest pain, unspecified (4) COPD (chronic obstructive pulmonary disease) Code(s): J44.9 - CHRONIC OBSTRUCTIVE PULMONARY DISEASE, UNSPECIFIED Assessment/Plan LIKELY OSAS/COPD SUPERIMPOSED UPON AF/MINOR DEGREE OF CHF O2 TO KEEP SAT 90% AND ABOVE BRONCHODILATORS NEEDED NO NEED FOR STEROIDS AT THIS TIME CHECK ECHO ORDERED WILL FOLLOW Kerry SUE MD
[2018-02-20] MEDS: FUROSEMIDE 40 MG/4 ML INJECTABLE VIAL IVPUSH SCH (13:45)
[2018-02-20] MEDS: ASPIRIN COATED 81 MG TABLET.EC PO SCH (18:54)
[2018-02-20] MEDS: MONTELUKAST NA 10 MG TABLET PO SCH (21:04)
--- NOTE | 2018-02-20 21:51 | EKG ---
Test Reason : Blood Pressure : / mmHG Vent. Rate : 100 BPM Atrial Rate : 115 BPM P-R Int : 000 ms QRS Dur : 086 ms QT Int : 342 ms P-R-T Axes : 000 012 028 degrees QTc Int : 441 ms ATRIAL FIBRILLATION ABNORMAL ECG WHEN COMPARED WITH ECG OF 17-AUG-2008 09:31, ATRIAL FIBRILLATION HAS REPLACED SINUS RHYTHM CRITERIA FOR INFERIOR INFARCT ARE NO LONGER PRESENT Confirmed by CORA JAMES MD ([id number]) on 02/20/2018 9:51:36 PM Referred By: Confirmed By:CORA JAMES MD
[2018-02-21] MEDS: METHYL SALICYLATE/MENTHOL OINT 30 GM TUBE TP PRN (00:11)
[2018-02-21] MEDS: FUROSEMIDE 40 MG/4 ML INJECTABLE VIAL IVPUSH SCH ×2 (06:29→13:22)
[2018-02-21] MEDS: INSULIN SLIDING SCALE (NOVOLOG) 1 VIAL SQ SCH ×4 (06:29→21:50)
[2018-02-21 07:00] LABS: EOS % 3.3 % (0-4.5); HEMATOCRIT 48.6 % (35.4-49); LYMPH % 16.4 % (8-40); MCH 29.7 pg (25.7-33.7); MCHC 32.9 g/dl (32.0-35.9); MEAN CELL VOLUME 90.5 fl (80-96); MEAN PLT VOLUME 10.3 fl (7.5-11.1); MONO % 13.3 % (3.8-10.2); PLATELET COUNT 127 K/MM3 (134-434); RBC 5.38 M/mm3 (4.00-5.60); RDW 15.3 % (11.9-15.9); WHITE BLOOD COUNT 6.7 K/mm3 (4.0-10.0)
[2018-02-21 07:31] LABS: ALBUMIN 3.1 g/dl (3.4-5.0); ALK PHOS 92 U/L (45-117); ANION GAP 13 (8-16); BLOOD UREA NITROGEN 21 mg/dL (7-18); CALCIUM 8.3 mg/dL (8.5-10.1); CHLORIDE 100 mmol/L (98-107); CO2 29 mmol/L (21-32); CREATININE 0.8 mg/dL (0.7-1.3); GLUCOSE,RANDOM 97 mg/dL (74-106); MAGNESIUM 2.1 mg/dL (1.8-2.4); PHOSPHOROUS 4.1 mg/dL (2.5-4.9); POTASSIUM 3.7 mmol/L (3.5-5.1); SGOT/AST 27 U/L (15-37); SGPT/ALT 22 U/L (12-78); SODIUM 142 mmol/L (136-145); TOT PROT 5.8 g/dl (6.4-8.2)
[2018-02-21] MEDS ORDERED: PT OWN MED DRAWER 7, Y5N ONE (10:04)
[2018-02-21] MEDS: ASPIRIN COATED 81 MG TABLET.EC PO SCH (10:13)
[2018-02-21] MEDS: METOPROLOL TARTRATE 50 MG TABLET (FP) PO SCH ×2 (10:13→21:51)
[2018-02-21] MEDS: RIVAROXABAN 20 MG TABLET PO SCH (10:13)
[2018-02-21] MEDS: CLOTRIMAZOLE 1% CREAM 15 GM TUBE TP SCH ×2 (10:15→21:51)
--- NOTE | 2018-02-21 11:13 | PN ---
Progress Note, Physician Chief Complaint: LE edema History of Present Illness: This is a 62 year old male with a PMH of AFIB, on Xarelto, DM2, obesity, HTN, and a smoking history. He is currently homeless, living in shelters. He has been experiencing VERAS accompanied occasionally with chest discomfort. He also noted orthopnea. He also noted notes chronic right leg swelling and redness which is currently no different than his normal baseline He had an ultrasound of this leg at [facility] within the past few weeks and he reports it was normal. CXR with CHF and cardiomegally. - Current Medication List Current Medications: Active Medications Aspirin (Ecotrin -) 81 mg PO DAILY [facility] Last Admin: 02/21/18 10:13 Dose: 81 mg Clotrimazole (Lotrimin 1% Cream -) 1 applic TP BID [facility] Last Admin: 02/21/18 10:15 Dose: Not Given Furosemide (Lasix Injection -) 40 mg IVPUSH BIDLASIX [facility] Last Admin: 02/21/18 06:29 Dose: 40 mg Insulin Aspart (Novolog Vial Sliding Scale -) 1 vial SQ ACHS [facility] PRN Reason: Protocol Last Admin: 02/21/18 06:29 Dose: Not Given Methyl Salicylate (Alex-Dodge -) 1 applic TP DAILY PRN PRN Reason: PAIN LEVEL 1-5 Last Admin: 02/21/18 00:11 Dose: 1 applic Metoprolol Tartrate (Lopressor -) 50 mg PO BID [facility] Last Admin: 02/21/18 10:13 Dose: 50 mg Montelukast Sodium (Singulair -) 10 mg PO HS [facility] Last Admin: 02/20/18 21:04 Dose: 10 mg Rivaroxaban (Xarelto -) 20 mg PO DAILY [facility] Last Admin: 02/21/18 10:13 Dose: 20 mg - Objective Vital Signs: Vital Signs Temperature 97.9 F 02/21/18 06:00 Pulse Rate 84 02/21/18 06:00 Respiratory Rate 20 02/21/18 06:00 Blood Pressure 131/70 02/21/18 06:00 O2 Sat by Pulse Oximetry (%) 95 02/20/18 20:50 Constitutional: Yes: No Distress Neck: Yes: Supple Cardiovascular: Yes: Pulse Irregular, S1, S2. No: JVD, Murmur Respiratory: Yes: CTA Bilaterally Edema: LLE: 1+, RLE: 1+ Labs: CBC, BMP 02/21/18 06:05 02/21/18 06:05 INR, PTT INR 1.06 (0.82-1.09) 02/18/18 14:42 Problem List - Problems (1) CHF exacerbation Code(s): I50.9 - HEART FAILURE, UNSPECIFIED Qualifiers: Heart failure type: unspecified Qualified Code(s): I50.9 - Heart failure, unspecified Assessment/Plan This is a 62 year old male with a PMH of AFIB, on Xarelto, DM2, obesity, HTN, and a smoking history. He is currently homeless, living in shelters. He has been experiencing VERAS accompanied occasionally with chest discomfort. He also noted orthopnea. He also noted notes chronic right leg swelling and redness which is currently no different than his normal baseline He had an ultrasound of this leg at [facility] within the past few weeks and he reports it was normal. CXR with CHF and cardiomegally. 1) Afib continue rate control on metoprolol 50mg bid. Will monitor HR on tele On rivaroxaban for AC 2) LE edema and CHF exacerbation -Diurese with furosemide 40mg IV bid Monitor I/O's, lytes, and daily weights Echocardiogram to evaluate LVEF
--- NOTE | 2018-02-21 12:37 | PN ---
Progress Note, Physician History of Present Illness: PULMONARY ALERT,C/O DYSPNEA WITH ANY EXERTION,-CP,-COUGH.PT HAS H/O SEVERE OSAS REFUSES CPAP OUTPATIENT - Current Medication List Current Medications: Active Medications Aspirin (Ecotrin -) 81 mg PO DAILY [facility] Last Admin: 02/21/18 10:13 Dose: 81 mg Clotrimazole (Lotrimin 1% Cream -) 1 applic TP BID [facility] Last Admin: 02/21/18 10:15 Dose: Not Given Furosemide (Lasix Injection -) 40 mg IVPUSH BIDLASIX [facility] Last Admin: 02/21/18 06:29 Dose: 40 mg Insulin Aspart (Novolog Vial Sliding Scale -) 1 vial SQ ACHS [facility] PRN Reason: Protocol Last Admin: 02/21/18 06:29 Dose: Not Given Methyl Salicylate (Alex-Dodge -) 1 applic TP DAILY PRN PRN Reason: PAIN LEVEL 1-5 Last Admin: 02/21/18 00:11 Dose: 1 applic Metoprolol Tartrate (Lopressor -) 50 mg PO BID [facility] Last Admin: 02/21/18 10:13 Dose: 50 mg Montelukast Sodium (Singulair -) 10 mg PO HS [facility] Last Admin: 02/20/18 21:04 Dose: 10 mg Rivaroxaban (Xarelto -) 20 mg PO DAILY [facility] Last Admin: 02/21/18 10:13 Dose: 20 mg - Objective Vital Signs: Vital Signs Temperature 97.9 F 02/21/18 06:00 Pulse Rate 84 02/21/18 06:00 Respiratory Rate 20 02/21/18 06:00 Blood Pressure 131/70 02/21/18 06:00 O2 Sat by Pulse Oximetry (%) 95 02/20/18 20:50 Constitutional: Yes: Calm, Obese Eyes: Yes: WNL HENT: Yes: WNL Neck: Yes: WNL Cardiovascular: Yes: Pulse Irregular, S1, S2 Respiratory: Yes: Diminished Gastrointestinal: Yes: Soft, Abdomen, Obese Extremities: Yes: WNL Edema: Yes Labs: CBC, BMP 02/21/18 06:05 02/21/18 06:05 INR, PTT INR 1.06 (0.82-1.09) 02/18/18 14:42 Problem List - Problems (1) Afib Code(s): I48.91 - UNSPECIFIED ATRIAL FIBRILLATION (2) Sleep apnea Code(s): G47.30 - SLEEP APNEA, UNSPECIFIED (3) Morbid obesity due to excess calories Code(s): E66.01 - MORBID (SEVERE) OBESITY DUE TO EXCESS CALORIES Assessment/Plan Problem List - Problems (1) Homeless single person Code(s): Z59.0 - HOMELESSNESS (2) CHF exacerbation Code(s): I50.9 - HEART FAILURE, UNSPECIFIED Qualifiers: Heart failure type: unspecified Qualified Code(s): I50.9 - Heart failure, unspecified (3) Chest pain Code(s): R07.9 - CHEST PAIN, UNSPECIFIED Qualifiers: Chest pain type: unspecified Qualified Code(s): R07.9 - Chest pain, unspecified (4) COPD (chronic obstructive pulmonary disease) Code(s): J44.9 - CHRONIC OBSTRUCTIVE PULMONARY DISEASE, UNSPECIFIED 5. SEVERE OSAS 6 AFIB 7 MORBID OBESITY Assessment/Plan O2 TO KEEP SAT 90% AND ABOVE BRONCHODILATORS NEEDED PAPI DOTY
--- NOTE | 2018-02-21 13:37 | CONSULT ---
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 No: O2 Dependent Gastrointestinal: No: Ascites Hepatobiliary: No: Cirrhosis Renal/: No: Renal Failure - Alcohol/Substance Use Hx Alcohol Use: Yes (H/O ALCOHOL ABUSE, 20 YEARS AGO , OCCASIONAL DRINKS A BEER ) - Smoking History Smoking history: Former smoker Have you smoked in the past 12 months: No - Social History ADL: Support Services History of Recent Travel: No Home Medications - Allergies Allergies/Adverse Reactions: Allergies Allergy/AdvReac Type Severity Reaction Status Date / Time No Known Allergies Allergy Verified 02/18/18 14:13 - Home Medications Home Medications: Ambulatory Orders Montelukast Na [Singulair] 1 each PO DAILY 07/04/12 metFORMIN HCL [Glucophage] 500 mg PO BID 07/04/12 Metoprolol Tartrate [Lopressor] 10 mg PO DAILY 02/03/18 Rivaroxaban [Xarelto -] 20 mg PO DAILY 02/18/18 Family Disease History - Family Disease History Family History: Denies Review of Systems - Review of Systems Constitutional: denies: Chills, Fever Cardiovascular: reports: No Symptoms Respiratory: reports: SOB Gastrointestinal: denies: Abdominal Pain, Dysphagia, Nausea Neurological: denies: Change in LOC Pain Intensity: 0 Physical Exam Vital Signs: Vital Signs Temperature 97.9 F 02/21/18 06:00 Pulse Rate 84 02/21/18 06:00 Respiratory Rate 20 02/21/18 06:00 Blood Pressure 131/70 02/21/18 06:00 O2 Sat by Pulse Oximetry (%) 95 02/20/18 20:50 Constitutional: Yes: Calm HENT: Yes: WNL Neck: Yes: WNL Cardiovascular: Yes: WNL Respiratory: Yes: Diminished Gastrointestinal: Yes: Soft, Abdomen, Obese. No: Tenderness, Tenderness, Rebound Neurological: Yes: Alert, Oriented Labs: CBC, BMP 02/21/18 06:05 02/21/18 06:05 Imaging - Results Cat Scan: Report Reviewed, Image Reviewed Problem List - Problems (1) Ventral hernia Code(s): K43.9 - VENTRAL HERNIA WITHOUT OBSTRUCTION OR GANGRENE Qualifiers: Obstruction and gangrene presence: without obstruction or gangrene Qualified Code(s): K43.9 - Ventral hernia without obstruction or gangrene (2) Morbid obesity due to excess calories Code(s): E66.01 - MORBID (SEVERE) OBESITY DUE TO EXCESS CALORIES Assessment/Plan 62 male with shortness of breath Ventral hernia x 2 Clinically asymptomatic Tolerating diet No pain Serial abdominal exams No emergency surgery at this time Clinically observe
--- NOTE | 2018-02-21 15:13 | PN ---
Progress Note (short form) - Note Progress Note: Subjective: The patient was seen and examined at the bedside, he has no complaints at this time. He denies any abdominal pain Current Medications Generic Name Dose Route Start Last Admin Trade Name Anushka PRN Reason Stop Dose Admin Aspirin 81 mg 02/20/18 18:45 02/21/18 10:13 Ecotrin - PO 81 mg DAILY [facility] Administration Clotrimazole 1 applic 02/18/18 22:45 02/21/18 10:15 Lotrimin 1% Cream - TP Not Given BID [facility] Furosemide 40 mg 02/20/18 14:00 02/21/18 13:22 Lasix Injection - IVPUSH 40 mg BIDLASIX [facility] Administration Insulin Aspart 1 vial 02/18/18 22:00 02/21/18 11:15 Novolog Vial Sliding Scale - SQ Not Given ACHS [facility] Protocol Methyl Salicylate 1 applic 02/19/18 23:49 02/21/18 00:11 Alex-Dodge - TP 1 applic DAILY PRN Administration PAIN LEVEL 1-5 Metoprolol Tartrate 50 mg 02/19/18 22:00 02/21/18 10:13 Lopressor - PO 50 mg BID [facility] Administration Montelukast Sodium 10 mg 02/19/18 22:00 02/20/18 21:04 Singulair - PO 10 mg HS [facility] Administration Rivaroxaban 20 mg 02/19/18 10:00 02/21/18 10:13 Xarelto - PO 20 mg DAILY [facility] Administration Objective: Vital Signs Period Temp Pulse Resp BP Sys/Whitley Pulse Ox Last 24 Hr 97.5 F-98.2 F 74-90 18-20 94-131/62-75 95-95 Physical Exam: General: NAD, A&Ox3 Lungs: CTA bilaterally Heart: Irregular, S1S2 Abd: Distended. Soft. Normoactive bowel sounds Ext: B/l 1+ edema CBCD WBC 6.7 K/mm3 (4.0-10.0) 02/21/18 06:05 RBC 5.38 M/mm3 (4.00-5.60) 02/21/18 06:05 Hgb 16.0 GM/dL (11.7-16.9) 02/21/18 06:05 Hct 48.6 % (35.4-49) 02/21/18 06:05 MCV 90.5 fl (80-96) 02/21/18 06:05 MCHC 32.9 g/dl (32.0-35.9) 02/21/18 06:05 RDW 15.3 % (11.9-15.9) 02/21/18 06:05 Plt Count 127 K/MM3 (134-434) L 02/21/18 06:05 MPV 10.3 fl (7.5-11.1) 02/21/18 06:05 CMP Sodium 142 mmol/L (136-145) 02/21/18 06:05 Potassium 3.7 mmol/L (3.5-5.1) 02/21/18 06:05 Chloride 100 mmol/L (98-107) 02/21/18 06:05 Carbon Dioxide 29 mmol/L (21-32) 02/21/18 06:05 Anion Gap 13 (8-16) 02/21/18 06:05 BUN 21 mg/dL (7-18) H D 02/21/18 06:05 Creatinine 0.8 mg/dL (0.7-1.3) 02/21/18 06:05 Creat Clearance w eGFR > 60 (>60) 02/21/18 06:05 Random Glucose 97 mg/dL (74-106) 02/21/18 06:05 Calcium 8.3 mg/dL (8.5-10.1) L 02/21/18 06:05 Total Bilirubin 2.0 mg/dL (0.2-1.0) H D 02/21/18 06:05 AST 27 U/L (15-37) 02/21/18 06:05 ALT 22 U/L (12-78) 02/21/18 06:05 Alkaline Phosphatase 92 U/L (45-117) 02/21/18 06:05 Total Protein 5.8 g/dl (6.4-8.2) L 02/21/18 06:05 Albumin 3.1 g/dl (3.4-5.0) L 02/21/18 06:05 CARDIAC ENZYMES Creatine Kinase 57 IU/L (39-308) 02/18/18 14:42 Troponin I < 0.02 ng/ml (0.00-0.05) 02/19/18 01:15 Assessment: This is a 62 year old male with PMHx of HTN, a.fib (on xarelto), NIDDM, morbid obesity, GERD, who presented to the ED with increasing SOB Plan: 1) Acute diastolic CHF exacerbation - Chest X-ray with cardiomegaly and congestive changes - F/u ECHO - Continue Lasix 40mg IVP bid - Strict I&O - Daily weights - Appreciate cardiology consult 2) Chest Pain - Resolved - Trop x4 negative - Cardiac monitoring 3) Ventral hernias - CTAP with 2 large ventral hernias within the upper anterior abdominal wall containing inflamed mesenteric fat suggesting incarceration with possible ischemia/infarction - Discussed with Dr. Cervantes, no emergency surgery at this time - Serial abdominal exams - Patient denies any abdominal pain, no tenderness on exam - Appreciate surgical consult 4) A.fib - Continue Xarelto - Continue Metoprolol 5) NIDDM - BGM ACHS - ISS ACHS 6) Chronic right lower extremity pain - RLE doppler negative for DVT 7) Morbid obesity - F/u Dr. Cervantes outpatient to discuss bariatric surgery 8) F/E/N: - Diabetic diet - Monitor electrolytes 9) Prophylaxis: - On Xarelto 10) Dispo: - Requires continued inpatient care CODE STATUS: FULL CODE Visit type - Emergency Visit Emergency Visit: Yes ED Registration Date: 02/19/18 Care time: The patient presented to the Emergency Department on the above date and was hospitalized for further evaluation of their emergent condition. - New Patient This patient is new to me today: Yes Date on this admission: 02/21/18 - Critical Care Critical Care patient: No
[2018-02-21] MEDS: MONTELUKAST NA 10 MG TABLET PO SCH (21:51)
[2018-02-22] MEDS: FUROSEMIDE 40 MG/4 ML INJECTABLE VIAL IVPUSH SCH ×2 (05:28→14:33)
[2018-02-22 06:36] LABS: HEMATOCRIT 48.7 % (35.4-49); HEMOGLOBIN 16.4 GM/dL (11.7-16.9); MCH 30.6 pg (25.7-33.7); MCHC 33.8 g/dl (32.0-35.9); MEAN CELL VOLUME 90.7 fl (80-96); PLATELET COUNT 130 K/MM3 (134-434); RBC 5.37 M/mm3 (4.00-5.60); RDW 15.5 % (11.9-15.9); WHITE BLOOD COUNT 6.8 K/mm3 (4.0-10.0)
[2018-02-22] MEDS: INSULIN SLIDING SCALE (NOVOLOG) 1 VIAL SQ SCH ×4 (06:39→22:09)
[2018-02-22 07:09] LABS: ALBUMIN 3.3 g/dl (3.4-5.0); ALK PHOS 89 U/L (45-117); ANION GAP 11 (8-16); BILIRUBIN,TOTAL 2.3 mg/dL (0.2-1.0); BLOOD UREA NITROGEN 24 mg/dL (7-18); CALCIUM 8.3 mg/dL (8.5-10.1); CHLORIDE 100 mmol/L (98-107); CO2 30 mmol/L (21-32); CREATININE 0.8 mg/dL (0.7-1.3); GLUCOSE,RANDOM 90 mg/dL (74-106); SGOT/AST 28 U/L (15-37); SGPT/ALT 23 U/L (12-78); SODIUM 141 mmol/L (136-145)
--- NOTE | 2018-02-22 08:07 | PN ---
Progress Note (short form) - Note Progress Note: No abdominal pain Tolerating diet Vital Signs Period Temp Pulse Resp BP Sys/Whitley Pulse Ox Last 24 Hr 97.5 F-98.4 F 74-86 18-20 102-123/53-64 94-95 Abd soft, obese, NT CBC, BMP 02/22/18 05:35 02/22/18 05:35 Continue medical management Serial abdominal exams Problem List - Problems (1) Ventral hernia Code(s): K43.9 - VENTRAL HERNIA WITHOUT OBSTRUCTION OR GANGRENE Qualifiers: Obstruction and gangrene presence: without obstruction or gangrene Qualified Code(s): K43.9 - Ventral hernia without obstruction or gangrene (2) Morbid obesity due to excess calories Code(s): E66.01 - MORBID (SEVERE) OBESITY DUE TO EXCESS CALORIES
[2018-02-22] MEDS: ASPIRIN COATED 81 MG TABLET.EC PO SCH (10:07)
[2018-02-22] MEDS: RIVAROXABAN 20 MG TABLET PO SCH (10:07)
[2018-02-22] MEDS: CLOTRIMAZOLE 1% CREAM 15 GM TUBE TP SCH ×2 (10:08→21:59)
[2018-02-22] MEDS: METOPROLOL TARTRATE 50 MG TABLET (FP) PO SCH ×2 (10:10→21:59)
--- NOTE | 2018-02-22 12:42 | PN ---
Progress Note (short form) - Note Progress Note: NAD on RA. Did not use NIPPV overnight. No acute events overnight. Some dry cough. Intake & Output 02/19/18 02/20/18 02/21/18 02/22/18 23:59 23:59 23:59 23:59 Intake Total 5190 880 5039 490 Output Total 900 1250 2000 1100 Balance 100 -880 -900 -610 Weight 361 lb 12.8 oz 358 lb 8 oz 359 lb 0.2 oz 356 lb Last Vital Signs Temp Pulse Resp BP Pulse Ox 98.3 F 94 H 20 89/50 96 02/22/18 10:00 02/22/18 10:00 02/22/18 10:00 02/22/18 10:00 02/22/18 09:00 Active Medications Aspirin (Ecotrin -) 81 mg PO DAILY [facility] Last Admin: 02/22/18 10:07 Dose: 81 mg Clotrimazole (Lotrimin 1% Cream -) 1 applic TP BID [facility] Last Admin: 02/22/18 10:08 Dose: Not Given Furosemide (Lasix Injection -) 40 mg IVPUSH BIDLASIX [facility] Last Admin: 02/22/18 05:28 Dose: 40 mg Insulin Aspart (Novolog Vial Sliding Scale -) 1 vial SQ ACHS [facility] PRN Reason: Protocol Last Admin: 02/22/18 11:15 Dose: Not Given Methyl Salicylate (Alex-Dodge -) 1 applic TP DAILY [facility] PRN Reason: PAIN LEVEL 1-5 Last Admin: 02/21/18 00:11 Dose: 1 applic Metoprolol Tartrate (Lopressor -) 50 mg PO BID [facility] Last Admin: 02/22/18 10:10 Dose: Not Given Montelukast Sodium (Singulair -) 10 mg PO HS [facility] Last Admin: 02/21/18 21:51 Dose: 10 mg Rivaroxaban (Xarelto -) 20 mg PO DAILY [facility] Last Admin: 02/22/18 10:07 Dose: 20 mg Constitutional: Yes: NAD, Obese Eyes: Yes: WNL HENT: Yes: WNL Neck: Yes: WNL Cardiovascular: Yes: Pulse Irregular, S1, S2 Respiratory: Yes: Diminished Gastrointestinal: Yes: Soft, Abdomen, Obese Extremities: Yes: WNL Edema: Yes Labs: Laboratory Results - last 24 hr 02/21/18 02/21/18 02/22/18 17:20 22:03 05:27 WBC RBC Hgb Hct MCV MCH MCHC RDW Plt Count MPV Sodium Potassium Chloride Carbon Dioxide Anion Gap BUN Creatinine Creat Clearance w eGFR POC Glucometer 109 93 86 Random Glucose Calcium Total Bilirubin AST ALT Alkaline Phosphatase Total Protein Albumin 02/22/18 02/22/18 02/22/18 05:35 05:35 11:13 WBC 6.8 RBC 5.37 Hgb 16.4 Hct 48.7 MCV 90.7 MCH 30.6 MCHC 33.8 RDW 15.5 Plt Count 130 L MPV 10.0 Sodium 141 Potassium 4.0 Chloride 100 Carbon Dioxide 30 Anion Gap 11 BUN 24 H Creatinine 0.8 Creat Clearance w eGFR > 60 POC Glucometer 116 Random Glucose 90 Calcium 8.3 L Total Bilirubin 2.3 H AST 28 ALT 23 Alkaline Phosphatase 89 Total Protein 6.0 L Albumin 3.3 L Problem List - Problems (1) Afib Code(s): I48.91 - UNSPECIFIED ATRIAL FIBRILLATION (2) Sleep apnea Code(s): G47.30 - SLEEP APNEA, UNSPECIFIED (3) Morbid obesity due to excess calories Code(s): E66.01 - MORBID (SEVERE) OBESITY DUE TO EXCESS CALORIES (4) Homeless single person Code(s): Z59.0 - HOMELESSNESS (5) CHF exacerbation Code(s): I50.9 - HEART FAILURE, UNSPECIFIED Qualifiers: Heart failure type: unspecified Qualified Code(s): I50.9 - Heart failure, unspecified (6) Chest pain Code(s): R07.9 - CHEST PAIN, UNSPECIFIED Qualifiers: Chest pain type: unspecified Qualified Code(s): R07.9 - Chest pain, unspecified (7) COPD (chronic obstructive pulmonary disease) Code(s): J44.9 - CHRONIC OBSTRUCTIVE PULMONARY DISEASE, UNSPECIFIED Assessment/Plan O2 TO MAINTAIN SATURATION BD TX PAP QHS IF PATIENT IS WILLING DR CHIU
--- NOTE | 2018-02-22 13:17 | PN ---
Progress Note, Physician Chief Complaint: Feels better with no sob History of Present Illness: This is a 62 year old male with a PMH of AFIB, on Xarelto, DM2, obesity, HTN, and a smoking history. He is currently homeless, living in shelters. He has been experiencing VERAS accompanied occasionally with chest discomfort. He also noted orthopnea. He also noted notes chronic right leg swelling and redness which is currently no different than his normal baseline He had an ultrasound of this leg at [facility] within the past few weeks and he reports it was normal. CXR with CHF and cardiomegally. - Current Medication List Current Medications: Active Medications Aspirin (Ecotrin -) 81 mg PO DAILY [facility] Last Admin: 02/22/18 10:07 Dose: 81 mg Clotrimazole (Lotrimin 1% Cream -) 1 applic TP BID [facility] Last Admin: 02/22/18 10:08 Dose: Not Given Furosemide (Lasix Injection -) 40 mg IVPUSH BIDLASIX [facility] Last Admin: 02/22/18 05:28 Dose: 40 mg Insulin Aspart (Novolog Vial Sliding Scale -) 1 vial SQ ACHS [facility] PRN Reason: Protocol Last Admin: 02/22/18 11:15 Dose: Not Given Methyl Salicylate (Alex-Dodge -) 1 applic TP DAILY [facility] PRN Reason: PAIN LEVEL 1-5 Last Admin: 02/21/18 00:11 Dose: 1 applic Metoprolol Tartrate (Lopressor -) 50 mg PO BID [facility] Last Admin: 02/22/18 10:10 Dose: Not Given Montelukast Sodium (Singulair -) 10 mg PO HS [facility] Last Admin: 02/21/18 21:51 Dose: 10 mg Rivaroxaban (Xarelto -) 20 mg PO DAILY [facility] Last Admin: 02/22/18 10:07 Dose: 20 mg - Objective Vital Signs: Vital Signs Temperature 98.3 F 02/22/18 10:00 Pulse Rate 94 H 02/22/18 10:00 Respiratory Rate 20 02/22/18 10:00 Blood Pressure 89/50 02/22/18 10:00 O2 Sat by Pulse Oximetry (%) 96 02/22/18 09:00 Constitutional: Yes: No Distress Neck: Yes: Supple Cardiovascular: Yes: Pulse Irregular, S1, S2. No: JVD Respiratory: Yes: CTA Bilaterally Gastrointestinal: Yes: Soft Edema: LLE: Trace, RLE: Trace Labs: CBC, BMP 02/22/18 05:35 02/22/18 05:35 INR, PTT INR 1.06 (0.82-1.09) 02/18/18 14:42 Problem List - Problems (1) CHF exacerbation Code(s): I50.9 - HEART FAILURE, UNSPECIFIED Qualifiers: Heart failure type: unspecified Qualified Code(s): I50.9 - Heart failure, unspecified Assessment/Plan This is a 62 year old male with a PMH of AFIB, on Xarelto, DM2, obesity, HTN, and a smoking history. He is currently homeless, living in shelters. He has been experiencing VERAS accompanied occasionally with chest discomfort. He also noted orthopnea. He also noted notes chronic right leg swelling and redness which is currently no different than his normal baseline He had an ultrasound of this leg at [facility] within the past few weeks and he reports it was normal. CXR with CHF and cardiomegally. 1) Afib continue rate control on metoprolol 50mg bid. Will monitor HR on tele On rivaroxaban for AC 2) LE edema and CHF exacerbation -Diurese with furosemide 40mg IV bid Monitor I/O's, lytes, and daily weights Would change to PO furosemide tomorrow
--- NOTE | 2018-02-22 15:30 | PN ---
Progress Note (short form) - Note Progress Note: Subjective: The patient was seen and examined at the bedside, he has no complaints at this time. He denies any abdominal pain Current Medications Generic Name Dose Route Start Last Admin Trade Name Anushka PRN Reason Stop Dose Admin Aspirin 81 mg 02/20/18 18:45 02/22/18 10:07 Ecotrin - PO 81 mg DAILY AMISH Administration Clotrimazole 1 applic 02/18/18 22:45 02/22/18 10:08 Lotrimin 1% Cream - TP Not Given BID AMISH Furosemide 40 mg 02/20/18 14:00 02/22/18 14:33 Lasix Injection - IVPUSH 40 mg BIDLASIX AMISH Administration Insulin Aspart 1 vial 02/18/18 22:00 02/22/18 11:15 Novolog Vial Sliding Scale - SQ Not Given ACHS AMISH Protocol Methyl Salicylate 1 applic 02/19/18 23:49 02/21/18 00:11 Alex-Dodge - TP 1 applic DAILY PRN Administration PAIN LEVEL 1-5 Metoprolol Tartrate 50 mg 02/19/18 22:00 02/22/18 10:10 Lopressor - PO Not Given BID AMISH Montelukast Sodium 10 mg 02/19/18 22:00 02/21/18 21:51 Singulair - PO 10 mg HS AMISH Administration Rivaroxaban 20 mg 02/19/18 10:00 02/22/18 10:07 Xarelto - PO 20 mg DAILY AMISH Administration Objective: Vital Signs Period Temp Pulse Resp BP Sys/Whitley Pulse Ox Last 24 Hr 98.0 F-98.9 F 78-94 16-20 89-139/50-76 94-96 Physical Exam: General: NAD, A&Ox3 Lungs: CTA bilaterally Heart: Irregular, S1S2 Abd: Distended. Soft. Normoactive bowel sounds Ext: B/l 1+ edema CBCD WBC 6.8 K/mm3 (4.0-10.0) 02/22/18 05:35 RBC 5.37 M/mm3 (4.00-5.60) 02/22/18 05:35 Hgb 16.4 GM/dL (11.7-16.9) 02/22/18 05:35 Hct 48.7 % (35.4-49) 02/22/18 05:35 MCV 90.7 fl (80-96) 02/22/18 05:35 MCHC 33.8 g/dl (32.0-35.9) 02/22/18 05:35 RDW 15.5 % (11.9-15.9) 02/22/18 05:35 Plt Count 130 K/MM3 (134-434) L 02/22/18 05:35 MPV 10.0 fl (7.5-11.1) 02/22/18 05:35 CMP Sodium 141 mmol/L (136-145) 02/22/18 05:35 Potassium 4.0 mmol/L (3.5-5.1) 02/22/18 05:35 Chloride 100 mmol/L (98-107) 02/22/18 05:35 Carbon Dioxide 30 mmol/L (21-32) 02/22/18 05:35 Anion Gap 11 (8-16) 02/22/18 05:35 BUN 24 mg/dL (7-18) H 02/22/18 05:35 Creatinine 0.8 mg/dL (0.7-1.3) 02/22/18 05:35 Creat Clearance w eGFR > 60 (>60) 02/22/18 05:35 Random Glucose 90 mg/dL (74-106) 02/22/18 05:35 Calcium 8.3 mg/dL (8.5-10.1) L 02/22/18 05:35 Total Bilirubin 2.3 mg/dL (0.2-1.0) H 02/22/18 05:35 AST 28 U/L (15-37) 02/22/18 05:35 ALT 23 U/L (12-78) 02/22/18 05:35 Alkaline Phosphatase 89 U/L (45-117) 02/22/18 05:35 Total Protein 6.0 g/dl (6.4-8.2) L 02/22/18 05:35 Albumin 3.3 g/dl (3.4-5.0) L 02/22/18 05:35 CARDIAC ENZYMES Creatine Kinase 57 IU/L (39-308) 02/18/18 14:42 Troponin I < 0.02 ng/ml (0.00-0.05) 02/19/18 01:15 Assessment: This is a 62 year old male with PMHx of HTN, a.fib (on xarelto), NIDDM, morbid obesity, GERD, who presented to the ED with increasing SOB Plan: 1) Acute diastolic CHF exacerbation - Chest X-ray with cardiomegaly and congestive changes - ECHO: suboptimal study. LV systolic function could not be accurately assessed due to poor visualization. Regional wall motion could not be assessed. Valvular regurgitation could not be accurately assessed - Continue Lasix 40mg IVP bid - Strict I&O - Daily weights: Down 1kg since yesterday - Appreciate cardiology consult 2) Chest Pain - Resolved - Trop x4 negative - Cardiac monitoring 3) Ventral hernias - CTAP with 2 large ventral hernias within the upper anterior abdominal wall containing inflamed mesenteric fat suggesting incarceration with possible ischemia/infarction - Discussed with Dr. Cervantes, no emergency surgery at this time - Serial abdominal exams - Patient denies any abdominal pain, no tenderness on exam - Appreciate surgical consult 4) A.fib - Continue Xarelto - Continue Metoprolol 5) NIDDM - BGM ACHS - ISS ACHS 6) Chronic right lower extremity pain - RLE doppler negative for DVT 7) Morbid obesity - F/u Dr. Cervantes outpatient to discuss bariatric surgery 8) F/E/N: - Diabetic diet - Monitor electrolytes 9) Prophylaxis: - On Xarelto 10) Dispo: - Requires continued inpatient care CODE STATUS: FULL CODE Visit type - Emergency Visit Emergency Visit: Yes ED Registration Date: 02/19/18 Care time: The patient presented to the Emergency Department on the above date and was hospitalized for further evaluation of their emergent condition. - New Patient This patient is new to me today: No - Critical Care Critical Care patient: No
[2018-02-22] MEDS ORDERED: PT OWN MED DRAWER 7, Y5N ONE (21:53)
[2018-02-22] MEDS: MONTELUKAST NA 10 MG TABLET PO SCH (21:59)
[2018-02-22] MEDS ORDERED: ACETAMINOPHEN 325 MG TABLET (FP) PO ONE (23:32)
[2018-02-23] MEDS: FUROSEMIDE 40 MG/4 ML INJECTABLE VIAL IVPUSH SCH (06:45)
[2018-02-23] MEDS: INSULIN SLIDING SCALE (NOVOLOG) 1 VIAL SQ SCH (06:50)
--- NOTE | 2018-02-23 09:34 | PN ---
Progress Note (short form) - Note Progress Note: Subjective: The patient was seen and examined at the bedside, he has no complaints at this time. He denies any abdominal pain Refused to use NIPPV overnight Current Medications Generic Name Dose Route Start Last Admin Trade Name Anushka PRN Reason Stop Dose Admin Aspirin 81 mg 02/20/18 18:45 02/22/18 10:07 Ecotrin - PO 81 mg DAILY AMISH Administration Clotrimazole 1 applic 02/18/18 22:45 02/22/18 21:59 Lotrimin 1% Cream - TP 1 applic BID AMISH Administration Furosemide 40 mg 02/20/18 14:00 02/23/18 06:45 Lasix Injection - IVPUSH 40 mg BIDLASIX AMISH Administration Methyl Salicylate 1 applic 02/19/18 23:49 02/21/18 00:11 Alex-Dodge - TP 1 applic DAILY PRN Administration PAIN LEVEL 1-5 Metoprolol Tartrate 50 mg 02/19/18 22:00 02/22/18 21:59 Lopressor - PO 50 mg BID AMISH Administration Montelukast Sodium 10 mg 02/19/18 22:00 02/22/18 21:59 Singulair - PO 10 mg HS AMISH Administration Rivaroxaban 20 mg 02/19/18 10:00 02/22/18 10:07 Xarelto - PO 20 mg DAILY AMISH Administration Objective: Vital Signs Period Temp Pulse Resp BP Sys/Whitley Pulse Ox Last 24 Hr 97.6 F-98.9 F 77-94 16-20 89-139/50-76 92-94 Physical Exam: General: NAD, A&Ox3 Lungs: CTA bilaterally Heart: Irregular, S1S2 Abd: Distended. Soft. Normoactive bowel sounds Ext: RLE 1+ edema. 2+ DP/PT bilaterally CBCD WBC 6.8 K/mm3 (4.0-10.0) 02/22/18 05:35 RBC 5.37 M/mm3 (4.00-5.60) 02/22/18 05:35 Hgb 16.4 GM/dL (11.7-16.9) 02/22/18 05:35 Hct 48.7 % (35.4-49) 02/22/18 05:35 MCV 90.7 fl (80-96) 02/22/18 05:35 MCHC 33.8 g/dl (32.0-35.9) 02/22/18 05:35 RDW 15.5 % (11.9-15.9) 02/22/18 05:35 Plt Count 130 K/MM3 (134-434) L 02/22/18 05:35 MPV 10.0 fl (7.5-11.1) 02/22/18 05:35 CMP Sodium 141 mmol/L (136-145) 02/22/18 05:35 Potassium 4.0 mmol/L (3.5-5.1) 02/22/18 05:35 Chloride 100 mmol/L (98-107) 02/22/18 05:35 Carbon Dioxide 30 mmol/L (21-32) 02/22/18 05:35 Anion Gap 11 (8-16) 02/22/18 05:35 BUN 24 mg/dL (7-18) H 02/22/18 05:35 Creatinine 0.8 mg/dL (0.7-1.3) 02/22/18 05:35 Creat Clearance w eGFR > 60 (>60) 02/22/18 05:35 Random Glucose 90 mg/dL (74-106) 02/22/18 05:35 Calcium 8.3 mg/dL (8.5-10.1) L 02/22/18 05:35 Total Bilirubin 2.3 mg/dL (0.2-1.0) H 02/22/18 05:35 AST 28 U/L (15-37) 02/22/18 05:35 ALT 23 U/L (12-78) 02/22/18 05:35 Alkaline Phosphatase 89 U/L (45-117) 02/22/18 05:35 Total Protein 6.0 g/dl (6.4-8.2) L 02/22/18 05:35 Albumin 3.3 g/dl (3.4-5.0) L 02/22/18 05:35 CARDIAC ENZYMES Creatine Kinase 57 IU/L (39-308) 02/18/18 14:42 Troponin I < 0.02 ng/ml (0.00-0.05) 02/19/18 01:15 Assessment: This is a 62 year old male with PMHx of HTN, a.fib (on xarelto), NIDDM, morbid obesity, GERD, who presented to the ED with increasing SOB Plan: 1) Acute diastolic CHF exacerbation - Chest X-ray with cardiomegaly and congestive changes - ECHO: suboptimal study. LV systolic function could not be accurately assessed due to poor visualization. Regional wall motion could not be assessed. Valvular regurgitation could not be accurately assessed - Continue Lasix 40mg IVP bid - Strict I&O - Daily weights, not done this AM - F/u pre/post O2 - Appreciate cardiology consult 2) Chest Pain - Resolved - Trop x4 negative - Cardiac monitoring 3) Ventral hernias - CTAP with 2 large ventral hernias within the upper anterior abdominal wall containing inflamed mesenteric fat suggesting incarceration with possible ischemia/infarction - Discussed with Dr. Cervantes, no emergency surgery at this time - Serial abdominal exams - Patient denies any abdominal pain, no tenderness on exam - Appreciate surgical consult 4) A.fib - Continue Xarelto - Continue Metoprolol 5) HgbA1c 6.1 - Patient states he is on Metformin at home to "reduce fat around his liver", and denies ever having a diagnosis of diabetes - Not requiring any insulin coverage here - Will change diet to regular diet and monitor, patient is requesting Metformin be restarted. Will hold off for now given patient has had some BGMs in the 80s 6) Chronic right lower extremity pain - RLE doppler negative for DVT 7) Morbid obesity - F/u Dr. Cervantes outpatient to discuss bariatric surgery 8) F/E/N: - Diabetic diet - Monitor electrolytes 9) Prophylaxis: - On Xarelto 10) Dispo: - Requires continued inpatient care CODE STATUS: FULL CODE Visit type - Emergency Visit Emergency Visit: Yes ED Registration Date: 02/19/18 Care time: The patient presented to the Emergency Department on the above date and was hospitalized for further evaluation of their emergent condition. - New Patient This patient is new to me today: No - Critical Care Critical Care patient: No
[2018-02-23] MEDS: METOPROLOL TARTRATE 50 MG TABLET (FP) PO SCH ×2 (09:40→21:55)
[2018-02-23] MEDS: RIVAROXABAN 20 MG TABLET PO SCH (09:40)
[2018-02-23] MEDS: ASPIRIN COATED 81 MG TABLET.EC PO SCH (09:40)
[2018-02-23] MEDS: CLOTRIMAZOLE 1% CREAM 15 GM TUBE TP SCH ×2 (09:40→21:56)
--- NOTE | 2018-02-23 10:00 | PN ---
Progress Note, Physician Chief Complaint: Comfortable No sob Tele: rate controlled afib History of Present Illness: This is a 62 year old male with a PMH of AFIB, on Xarelto, DM2, obesity, HTN, and a smoking history. He is currently homeless, living in shelters. He has been experiencing VERAS accompanied occasionally with chest discomfort. He also noted orthopnea. He also noted notes chronic right leg swelling and redness which is currently no different than his normal baseline He had an ultrasound of this leg at [facility] within the past few weeks and he reports it was normal. CXR with CHF and cardiomegally. - Current Medication List Current Medications: Active Medications Aspirin (Ecotrin -) 81 mg PO DAILY [facility] Last Admin: 02/23/18 09:40 Dose: 81 mg Clotrimazole (Lotrimin 1% Cream -) 1 applic TP BID [facility] Last Admin: 02/23/18 09:40 Dose: Not Given Furosemide (Lasix Injection -) 40 mg IVPUSH BIDLASIX [facility] Last Admin: 02/23/18 06:45 Dose: 40 mg Methyl Salicylate (Alex-Dodge -) 1 applic TP DAILY PRN PRN Reason: PAIN LEVEL 1-5 Last Admin: 02/21/18 00:11 Dose: 1 applic Metoprolol Tartrate (Lopressor -) 50 mg PO BID [facility] Last Admin: 02/23/18 09:40 Dose: 50 mg Montelukast Sodium (Singulair -) 10 mg PO HS [facility] Last Admin: 02/22/18 21:59 Dose: 10 mg Rivaroxaban (Xarelto -) 20 mg PO DAILY [facility] Last Admin: 02/23/18 09:40 Dose: 20 mg - Objective Vital Signs: Vital Signs Temperature 97.6 F 02/23/18 06:00 Pulse Rate 84 02/23/18 06:00 Respiratory Rate 20 02/23/18 06:00 Blood Pressure 104/68 02/23/18 06:00 O2 Sat by Pulse Oximetry (%) 94 L 02/22/18 21:00 Constitutional: Yes: No Distress Neck: Yes: Supple Cardiovascular: Yes: Pulse Irregular, S1, S2. No: JVD, Murmur Respiratory: Yes: CTA Bilaterally Gastrointestinal: Yes: Soft, Abdomen, Obese Labs: CBC, BMP 02/22/18 05:35 02/22/18 05:35 INR, PTT INR 1.06 (0.82-1.09) 02/18/18 14:42 Problem List - Problems (1) CHF exacerbation Code(s): I50.9 - HEART FAILURE, UNSPECIFIED Qualifiers: Heart failure type: unspecified Qualified Code(s): I50.9 - Heart failure, unspecified Assessment/Plan This is a 62 year old male with a PMH of AFIB, on Xarelto, DM2, obesity, HTN, and a smoking history. He is currently homeless, living in shelters. He has been experiencing VERAS accompanied occasionally with chest discomfort. He also noted orthopnea. He also noted notes chronic right leg swelling and redness which is currently no different than his normal baseline He had an ultrasound of this leg at [facility] within the past few weeks and he reports it was normal. CXR with CHF and cardiomegally. 1) Afib continue rate control on metoprolol 50mg bid. On rivaroxaban for AC 2) Volume improved -Would change to furosemide 40mg PO bid -As an outpatient should be arranged for echocardiogram with [facility] for better evaluation. No murmurs on exam. Has a cmm inspector as outpt which he has not seen so can follow up with this person with DC info or can see us in our office and we can arrange after he follows up. [phone] Can DC telemetry Will sign off please call back as needed
--- NOTE | 2018-02-23 12:12 | DS ---
Physical Examination Vital Signs: Vital Signs Temperature 97.6 F 02/23/18 06:00 Pulse Rate 96 H 02/23/18 11:20 Respiratory Rate 20 02/23/18 06:00 Blood Pressure 104/68 02/23/18 06:00 O2 Sat by Pulse Oximetry (%) 91 L 02/23/18 11:20 Labs: CBC, BMP 02/22/18 05:35 02/22/18 05:35 Discharge Summary Reason For Visit: ACUTE ON CHR CHF/CHEST PAIN/HYPOCALCEMIA Current Active Problems Afib (Acute) CHF exacerbation (Acute) COPD (chronic obstructive pulmonary disease) (Acute) Chest pain (Acute) Homeless single person (Acute) Hyperbilirubinemia (Acute) Hypocalcemia (Acute) Morbid obesity due to excess calories (Acute) Sleep apnea (Acute) Ventral hernia (Acute) Condition: Improved - Instructions Diet, Activity, Other Instructions: Please return to the ED with new, persistent, or worsening symptoms. Please follow-up with providers as indicated. Referrals: Dandre Cervantes MD [Staff Physician] - (Please follow-up with Dr. Cervantes within 1 week to discuss weight loss surgery options and further evaluation of a hernia repair.) Jamal Natarajan MD [Primary Care Provider] - (Please follow-up with your primary care provider within 1 week. ) Elijah Garza MD [Staff Physician] - (Please follow-up with Dr. Garza within 2-3 days for an outpatient sleep study) Arslan Martinez MD [Staff Physician] - (Please follow-up with Dr. Martinez ( cardiology) for further management of your atrial fibrillation and to schedule an outpatient echocardiogram. ) Disposition: HOME - Home Medications Comprehensive Discharge Medication List: Ambulatory Orders Montelukast Na [Singulair -] 1 each PO DAILY 07/04/12 Rivaroxaban [Xarelto -] 20 mg PO DAILY 02/18/18 Aspirin Coated [Ecotrin -] 81 mg PO DAILY #30 tablet.ec 02/23/18 Clotrimazole [Lotrimin -] 1 applic TP BID #1 tube 02/23/18 Furosemide [Lasix -] 40 mg PO BID@0600,1400 #60 tablet 02/23/18 Metoprolol Tartrate [Lopressor -] 50 mg PO BID #60 tablet 02/23/18 Walker [Ultra-Light Rollator] 1 each ASDIR #1 each 02/23/18
[2018-02-23] MEDS: FUROSEMIDE 40 MG TABLET (FP) PO SCH (13:34)
[2018-02-23] MEDS ORDERED: PT OWN MED DRAWER 7, Y5N ONE (21:31)
[2018-02-23] MEDS: MONTELUKAST NA 10 MG TABLET PO SCH (21:55)
[2018-02-24] MEDS: FUROSEMIDE 40 MG TABLET (FP) PO SCH ×2 (06:52→13:39)
--- NOTE | 2018-02-24 09:43 | PN ---
Progress Note (short form) - Note Progress Note: Subjective: The patient was seen and examined at the bedside, he was discharged yesterday but is refusing to go to a [facility] that has been set up Refused to use NIPPV overnight Current Medications Generic Name Dose Route Start Last Admin Trade Name Freq PRN Reason Stop Dose Admin Aspirin 81 mg 02/20/18 18:45 02/23/18 09:40 Ecotrin - PO 81 mg DAILY AMISH Administration Clotrimazole 1 applic 02/18/18 22:45 02/23/18 21:56 Lotrimin 1% Cream - TP 1 applic BID AMISH Administration Furosemide 40 mg 02/23/18 14:00 02/24/18 06:52 Lasix - PO 40 mg BID@0600,1400 AMISH Administration Methyl Salicylate 1 applic 02/19/18 23:49 02/21/18 00:11 Alex-Dodge - TP 1 applic DAILY PRN Administration PAIN LEVEL 1-5 Metoprolol Tartrate 50 mg 02/19/18 22:00 02/23/18 21:55 Lopressor - PO 50 mg BID AMISH Administration Montelukast Sodium 10 mg 02/19/18 22:00 02/23/18 21:55 Singulair - PO 10 mg HS AMISH Administration Rivaroxaban 20 mg 02/19/18 10:00 02/23/18 09:40 Xarelto - PO 20 mg DAILY AMISH Administration Objective: Vital Signs Period Temp Pulse Resp BP Sys/Whitley Pulse Ox Last 24 Hr 98.0 F-99.2 F 82-96 16-20 95-135/59-73 91-93 Physical Exam: Refused CBCD WBC 6.8 K/mm3 (4.0-10.0) 02/22/18 05:35 RBC 5.37 M/mm3 (4.00-5.60) 02/22/18 05:35 Hgb 16.4 GM/dL (11.7-16.9) 02/22/18 05:35 Hct 48.7 % (35.4-49) 02/22/18 05:35 MCV 90.7 fl (80-96) 02/22/18 05:35 MCHC 33.8 g/dl (32.0-35.9) 02/22/18 05:35 RDW 15.5 % (11.9-15.9) 02/22/18 05:35 Plt Count 130 K/MM3 (134-434) L 02/22/18 05:35 MPV 10.0 fl (7.5-11.1) 02/22/18 05:35 CMP Sodium 141 mmol/L (136-145) 02/22/18 05:35 Potassium 4.0 mmol/L (3.5-5.1) 02/22/18 05:35 Chloride 100 mmol/L (98-107) 02/22/18 05:35 Carbon Dioxide 30 mmol/L (21-32) 02/22/18 05:35 Anion Gap 11 (8-16) 02/22/18 05:35 BUN 24 mg/dL (7-18) H 02/22/18 05:35 Creatinine 0.8 mg/dL (0.7-1.3) 02/22/18 05:35 Creat Clearance w eGFR > 60 (>60) 02/22/18 05:35 Random Glucose 90 mg/dL (74-106) 02/22/18 05:35 Calcium 8.3 mg/dL (8.5-10.1) L 02/22/18 05:35 Total Bilirubin 2.3 mg/dL (0.2-1.0) H 02/22/18 05:35 AST 28 U/L (15-37) 02/22/18 05:35 ALT 23 U/L (12-78) 02/22/18 05:35 Alkaline Phosphatase 89 U/L (45-117) 02/22/18 05:35 Total Protein 6.0 g/dl (6.4-8.2) L 02/22/18 05:35 Albumin 3.3 g/dl (3.4-5.0) L 02/22/18 05:35 CARDIAC ENZYMES Creatine Kinase 57 IU/L (39-308) 02/18/18 14:42 Troponin I < 0.02 ng/ml (0.00-0.05) 02/19/18 01:15 Assessment: This is a 62 year old male with PMHx of HTN, a.fib (on xarelto), NIDDM, morbid obesity, GERD, who presented to the ED with increasing SOB Plan: 1) Acute diastolic CHF exacerbation - Chest X-ray with cardiomegaly and congestive changes - ECHO: suboptimal study. LV systolic function could not be accurately assessed due to poor visualization. Regional wall motion could not be assessed. Valvular regurgitation could not be accurately assessed - Switched to po lasix yesterday - Strict I&O - Daily weights, not done this AM - Appreciate cardiology consult 2) Chest Pain - Resolved - Trop x4 negative - Cardiac monitoring 3) Ventral hernias - CTAP with 2 large ventral hernias within the upper anterior abdominal wall containing inflamed mesenteric fat suggesting incarceration with possible ischemia/infarction - Discussed with Dr. Cervantes, no emergency surgery at this time - Serial abdominal exams - Patient denies any abdominal pain, no tenderness on exam - Appreciate surgical consult 4) A.fib - Continue Xarelto - Continue Metoprolol 5) HgbA1c 6.1 - Was on Metformin for fatty liver disease and metabolic syndrome. Will discontinue as recent studies have not shown this treatment to be effective 6) Chronic right lower extremity pain - RLE doppler negative for DVT 7) Morbid obesity - F/u Dr. Cervantes outpatient to discuss bariatric surgery 8) F/E/N: - Diabetic diet - Monitor electrolytes 9) Prophylaxis: - On Xarelto 10) Dispo: - Requires continued inpatient care CODE STATUS: FULL CODE Visit type - Emergency Visit Emergency Visit: Yes ED Registration Date: 02/19/18 Care time: The patient presented to the Emergency Department on the above date and was hospitalized for further evaluation of their emergent condition. - New Patient This patient is new to me today: No - Critical Care Critical Care patient: No
[2018-02-24] MEDS: CLOTRIMAZOLE 1% CREAM 15 GM TUBE TP SCH (10:13)
[2018-02-24] MEDS: METOPROLOL TARTRATE 50 MG TABLET (FP) PO SCH (12:12)
[2018-02-24] MEDS: ASPIRIN COATED 81 MG TABLET.EC PO SCH (12:12)
[2018-02-24] MEDS: RIVAROXABAN 20 MG TABLET PO SCH (12:13)
[2018-02-24 14:33] VITALS: BP 111/69; PULSE 87; TEMP 98.4
== END 2018-02-24 14:34 | disposition home or self-care (01) | DRG 194 ==
LOC: JER 13:54 → JERBED 18:26 → J4S 20:07 → OBSVTOIN 02-19 19:40
PROVIDERS: ADMIT Internal Medicine; ATTEND Registered Nurse
DX: I11.0 Hypertensive heart disease with heart failure (principal); I50.31 Acute diastolic (congestive) heart failure; I48.91 Unspecified atrial fibrillation; E80.6 Other disorders of bilirubin metabolism; E11.9 Type 2 diabetes mellitus without complications; J44.9 Chronic obstructive pulmonary disease, unspecified; G47.33 Obstructive sleep apnea (adult) (pediatric); K21.9 Gastro-esophageal reflux disease without esophagitis; K76.0 Fatty (change of) liver, not elsewhere classified; M79.604 Pain in right leg; K44.9 Diaphragmatic hernia without obstruction or gangrene; K43.6 Other and unspecified ventral hernia with obstruction, without gangrene; E83.51 Hypocalcemia; E66.01 Morbid (severe) obesity due to excess calories; Z68.43 Body mass index [BMI] 50.0-59.9, adult; R07.89 Other chest pain; Z87.891 Personal history of nicotine dependence; Z59.0 Homelessness
CPT/HCPCS: 36415; 71045-TC-FY; 74176-TC; 80053; 82550; 82962; 83036; 83690; 83735; 83880; 84100; 84484; 85025; 85027; 85610; 85730; 93005; 93010; 93306-TC; 93971-TC; 94660; 94761; 97116-GP; 97161-GP; 99285-25; G0378